=== PATIENT | male | born 1945 | race African-American/Black ===

== ENCOUNTER 2021-01-30 00:48 | Inpatient (IN) | payer BC, MEDICARE ==
[2021-01-30] VITALS (8 sets, daily range): BP systolic 153–191; BP diastolic 76–95
[~2021-01-30] VITALS: Ht 193 cm; Wt 129.0 kg
[2021-01-30] MEDS ORDERED: MORPHINE SULFATE 4 MG/ML CPJ (NOT FOR IM USE) IV STA (01:12)
[2021-01-30] MEDS ORDERED: ONDANSETRON HCL 4MG/2ML INJ IV STA (01:12)
[2021-01-30] MEDS ORDERED: SODIUM CHLORIDE 0.9% 1,000 ML IV ONE (01:15)
[2021-01-30] MEDS ORDERED: MORPHINE SULFATE 2 MG/ML CPJ (NOT FOR IM USE) IV SCH (01:30)
[2021-01-30 02:19] LABS: CHLORIDE 107 mEq/L (98-107)
[2021-01-30 02:23] LABS: ETHANOL BLOOD < 10 mg/dL
[2021-01-30 02:24] LABS: BASOPHILS % 0.5 % (0.0-2.0); EOSINOPHILS % 0.3 % (0.0-5.0); HEMATOCRIT. 37.2 % (42.0-52.0); HEMOGLOBIN. 12.2 g/dL (14.0-18.0); LYMPHOCYTES % 16.4 % (20.0-50.0); MEAN CORPUSCULAR HEMOGLOBIN 31.2 pg (28.0-32.0); MEAN CORPUSCULAR VOLUME 94.9 fL (80.0-94.0); MEAN PLATELET VOLUME 8.6 fl (7.4-10.4); MONOCYTES % 6.4 % (2.0-8.0); NEUTROPHILS % 76.4 % (40.0-76.0); PLATELET 148 x1000/uL (130-400); RED BLOOD CELL COUNT 3.92 mill/uL (4.7-6.1)
[2021-01-30 02:26] LABS: INR 1.1; LDL CHOLESTEROL 175 mg/dL (5-100); PROTHROMBIN TIME 12.2 sec (9.6-11.0)
[2021-01-30] MEDS ORDERED: ASPIRIN 300MG SUPP PR ONE (03:00)
[2021-01-30 03:11] LABS: CLARITY URINE CLEAR (CLEAR); COLOR URINE YELLOW (YELLOW); KETONES URINE TRACE (NEGATIVE); LEUKOCYTE ESTERASE URINE NEGATIVE (NEGATIVE); NITRITE URINE NEGATIVE (NEGATIVE); OCCULT BLOOD URINE 2+ (NEGATIVE); PH URINE 5.5 (4.5-8.0); PROTEIN URINE 2+ (NEGATIVE); SPECIFIC GRAVITY URINE 1.042 (1.005-1.030)
[2021-01-30 03:23] LABS: METHADONE URINE SCREEN NEGATIVE (NEGATIVE); OPIATES URINE SCREEN PRESUMTIVE POSITIVE (NEGATIVE)
[2021-01-30 03:24] LABS: *AMPHETAMINES SCREEN URINE NEGATIVE (NEGATIVE); *BARBITURATES SCREEN URINE NEGATIVE (NEGATIVE); *BENZODIAZEPINES SCREEN URINE NEGATIVE (NEGATIVE); *COCAINE SCREEN URINE NEGATIVE (NEGATIVE); CANNABINOID URINE SCREEN NEGATIVE (NEGATIVE); PHENCYCLIDINE URINE SCREEN NEGATIVE (NEGATIVE)
[2021-01-30] MEDS ORDERED: IOHEXOL-350 100 ML BOTTLE ONE (05:38)
[2021-01-30] MEDS ORDERED: LABETALOL 5MG/ML SYR 20 MG/4 ML SYRINGE IV PRN (10:30)
[2021-01-30] MEDS: HYDRALAZINE 20MG/ML VIAL IV PRN ×2 (13:50→20:17)
[2021-01-30] MEDS ORDERED: SODIUM CHLORIDE 0.9% 1,000 ML IV SCH (16:30)
[2021-01-30] MEDS ORDERED: ACETAMINOPHEN 325MG TABLET PO PRN ×2 (16:45)
[2021-01-30] MEDS ORDERED: IPRATROPIUM/ALBUTEROL 0.5-3(2.5)MG/3ML NEB HHN PRN (16:45)
[2021-01-30] MEDS ORDERED: ONDANSETRON HCL 4MG/2ML INJ IV PRN (16:45)
[2021-01-30] MEDS ORDERED: DOCUSATE SODIUM 100MG CAPSULE PO PRN (16:45)
[2021-01-30] MEDS: SODIUM CHLORIDE 0.45% 1,000 ML IV SCH (18:53)
[2021-01-30] MEDS ORDERED: ENOXAPARIN 120MG/0.8ML SYR SUBCUT SCH (20:00)
[2021-01-30 20:47] LABS: FOLIC ACID (FOLATE) SERUM 4.3 ng/mL (>5.38)
[2021-01-30] MEDS ORDERED: ATORVASTATIN CALCIUM 20MG TABLET PO SCH (21:00)
[2021-01-31] VITALS (18 sets, daily range): BP systolic 126–174; BP diastolic 62–94
[2021-01-31] MEDS: HYDRALAZINE 20MG/ML VIAL IV PRN (03:29)
[2021-01-31] MEDS: SODIUM CHLORIDE 0.45% 1,000 ML IV SCH ×2 (05:39→21:07)
[2021-01-31 07:17] LABS: EOSINOPHILS % 2.2 % (0.0-5.0); HEMATOCRIT. 35.2 % (42.0-52.0); LYMPHOCYTES % 20.4 % (20.0-50.0); MEAN CORPUSCULAR HEMOGLOBIN 31.7 pg (28.0-32.0); MEAN CORPUSCULAR VOLUME 92.8 fL (80.0-94.0); MEAN PLATELET VOLUME 8.6 fl (7.4-10.4); MONOCYTES % 6.9 % (2.0-8.0); NEUTROPHILS % 69.5 % (40.0-76.0); PLATELET 156 x1000/uL (130-400); RED BLOOD CELL COUNT 3.79 mill/uL (4.7-6.1); RED CELL DISTRIBUTION WIDTH 14.9 % (11.6-14.6)
[2021-01-31 07:28] LABS: CHLORIDE 107 mEq/L (98-107)
[2021-01-31] MEDS: ASPIRIN 81MG TABLET PO SCH (08:14)
[2021-01-31] MEDS ORDERED: NALOXONE HCL 0.4MG/ML VIAL IV PRN (15:45)
[2021-01-31] MEDS: FOLIC ACID 1MG TABLET PO SCH (15:57)
[2021-01-31] MEDS: THIAMINE HCL 100MG TABLET PO SCH (15:57)
[2021-01-31] MEDS: CLONIDINE 0.1MG TABLET PO PRN (16:41)
[2021-01-31] MEDS: ATORVASTATIN CALCIUM 20MG TABLET PO SCH (21:07)
[2021-01-31] MEDS: ENOXAPARIN 120MG/0.8ML SYR SUBCUT SCH (21:08)
[2021-02-01] VITALS (26 sets, daily range): BP systolic 130–193; BP diastolic 17–91
[2021-02-01] MEDS: HYDRALAZINE 20MG/ML VIAL IV PRN (04:09)
[2021-02-01] MEDS: CLONIDINE 0.1MG TABLET PO PRN ×2 (06:34→17:56)
[2021-02-01 06:50] LABS: BASOPHILS % 1.1 % (0.0-2.0); EOSINOPHILS % 2.7 % (0.0-5.0); HEMATOCRIT. 33.4 % (42.0-52.0); HEMOGLOBIN. 11.5 g/dL (14.0-18.0); LYMPHOCYTES % 26.9 % (20.0-50.0); MEAN CORPUSCULAR HEMOGLOBIN 31.7 pg (28.0-32.0); MEAN CORPUSCULAR VOLUME 92.2 fL (80.0-94.0); MONOCYTES % 7.3 % (2.0-8.0); PLATELET 165 x1000/uL (130-400); RED BLOOD CELL COUNT 3.63 mill/uL (4.7-6.1); RED CELL DISTRIBUTION WIDTH 14.7 % (11.6-14.6)
[2021-02-01 07:03] LABS: CHLORIDE 104 mEq/L (98-107)
[2021-02-01 07:26] LABS: PHOSPHORUS 2.6 mg/dL (2.5-4.9)
[2021-02-01] MEDS: ENOXAPARIN 120MG/0.8ML SYR SUBCUT SCH (08:30)
[2021-02-01] MEDS: FOLIC ACID 1MG TABLET PO SCH (08:30)
[2021-02-01] MEDS: ASPIRIN 81MG TABLET PO SCH (08:31)
[2021-02-01] MEDS: THIAMINE HCL 100MG TABLET PO SCH (08:33)
[2021-02-01] MEDS ORDERED: AMLODIPINE 5MG TABLET PO SCH (09:00)
[2021-02-01] MEDS: SODIUM CHLORIDE 0.45% 1,000 ML IV SCH (11:53)
[2021-02-01] MEDS: ALLOPURINOL 100 MG TABLET PO SCH (11:53)
[2021-02-01] MEDS ORDERED: LACTULOSE 20G/30ML UDC PO PRN (14:45)
[2021-02-01] MEDS ORDERED: BISACODYL 10MG SUPP PR PRN (14:45)
[2021-02-01] MEDS ORDERED: DOCUSATE SODIUM 100MG CAPSULE PO SCH (17:00)
[2021-02-01] MEDS: ATORVASTATIN CALCIUM 20MG TABLET PO SCH (21:08)
[2021-02-01] MEDS: ENOXAPARIN 150MG/ML SYR SUBCUT SCH (21:09)
[2021-02-01] MEDS: DOCUSATE SODIUM 100MG CAPSULE PO SCH (21:10)
[2021-02-01] MEDS: DOXAZOSIN MESYLATE 2MG TABLET PO SCH (21:11)
[2021-02-02] VITALS (12 sets, daily range): BP systolic 126–172; BP diastolic 57–96
[2021-02-02] MEDS: CLONIDINE 0.1MG TABLET PO PRN ×2 (06:20→16:47)
[2021-02-02 06:46] LABS: HEMATOCRIT. 31.6 % (42.0-52.0); HEMOGLOBIN. 10.8 g/dL (14.0-18.0); LYMPHOCYTES % 18.7 % (20.0-50.0); MEAN CORPUSCULAR HEMOGLOBIN 31.6 pg (28.0-32.0); MEAN CORPUSCULAR VOLUME 92.1 fL (80.0-94.0); MEAN PLATELET VOLUME 8.9 fl (7.4-10.4); MONOCYTES % 6.5 % (2.0-8.0); NEUTROPHILS % 70.8 % (40.0-76.0); PLATELET 181 x1000/uL (130-400); RED BLOOD CELL COUNT 3.42 mill/uL (4.7-6.1)
[2021-02-02 06:48] LABS: CHLORIDE 105 mEq/L (98-107)
[2021-02-02 06:55] LABS: PHOSPHORUS 2.4 mg/dL (2.5-4.9)
[2021-02-02] MEDS: ENOXAPARIN 150MG/ML SYR SUBCUT SCH ×2 (08:50→21:03)
[2021-02-02] MEDS: DILTIAZEM HCL 120MG CAPSULE CD 24HR PO SCH (08:52)
[2021-02-02] MEDS: FOLIC ACID 1MG TABLET PO SCH (08:52)
[2021-02-02] MEDS: ASPIRIN 81MG TABLET PO SCH (08:53)
[2021-02-02] MEDS: THIAMINE HCL 100MG TABLET PO SCH (08:53)
[2021-02-02] MEDS: DOCUSATE SODIUM 100MG CAPSULE PO SCH ×2 (08:53→16:47)
[2021-02-02] MEDS: ALLOPURINOL 100 MG TABLET PO SCH (08:53)
[2021-02-02] MEDS ORDERED: POTASSIUM CHLORIDE 20MEQ TABLET SR PO NR (09:18)
[2021-02-02] MEDS ORDERED: MAGNESIUM CITRATE 300ML SOLUTION PO NR (10:00)
[2021-02-02] MEDS: POTASSIUM-SODIUM PHOSPHATE POWDER PACKET PO SCH (16:46)
[2021-02-02] MEDS: HYDRALAZINE 20MG/ML VIAL IV PRN (18:10)
[2021-02-02] MEDS: ATORVASTATIN CALCIUM 20MG TABLET PO SCH (21:03)
[2021-02-02] MEDS: DOXAZOSIN MESYLATE 2MG TABLET PO SCH (21:04)
[2021-02-03] VITALS (11 sets, daily range): BP systolic 99–166; BP diastolic 58–85
[2021-02-03] MEDS: HYDROCODONE/ACETAMINOPHEN 5/325MG TABLET PO PRN ×2 (03:31→18:02)
[2021-02-03 06:09] LABS: BASOPHILS % 0.8 % (0.0-2.0); EOSINOPHILS % 2.7 % (0.0-5.0); HEMATOCRIT. 33.2 % (42.0-52.0); HEMOGLOBIN. 10.9 g/dL (14.0-18.0); LYMPHOCYTES % 23.1 % (20.0-50.0); MEAN CORPUSCULAR HEMOGLOBIN 31.5 pg (28.0-32.0); MEAN CORPUSCULAR VOLUME 95.7 fL (80.0-94.0); MEAN PLATELET VOLUME 8.4 fl (7.4-10.4); MONOCYTES % 8.1 % (2.0-8.0); NEUTROPHILS % 65.3 % (40.0-76.0); PLATELET 195 x1000/uL (130-400); RED BLOOD CELL COUNT 3.47 mill/uL (4.7-6.1)
[2021-02-03 06:26] LABS: PHOSPHORUS 2.4 mg/dL (2.5-4.9)
[2021-02-03] MEDS: DOCUSATE SODIUM 100MG CAPSULE PO SCH ×2 (07:36→17:00)
[2021-02-03] MEDS: POTASSIUM-SODIUM PHOSPHATE POWDER PACKET PO SCH ×2 (08:34→18:01)
[2021-02-03] MEDS: ALLOPURINOL 100 MG TABLET PO SCH (08:34)
[2021-02-03] MEDS: DILTIAZEM HCL 120MG CAPSULE CD 24HR PO SCH (08:34)
[2021-02-03] MEDS: FOLIC ACID 1MG TABLET PO SCH (08:35)
[2021-02-03] MEDS: ENOXAPARIN 150MG/ML SYR SUBCUT SCH (08:35)
[2021-02-03] MEDS: ASPIRIN 81MG TABLET PO SCH (08:35)
[2021-02-03] MEDS: THIAMINE HCL 100MG TABLET PO SCH (08:35)
[2021-02-03 14:10] LABS: TOTAL IRON BINDING CAPACITY 245 ug/dL (250-450)
[2021-02-03 14:14] LABS: CREATINE KINASE 449 IU/L (39-308)
[2021-02-03] MEDS: ATORVASTATIN CALCIUM 20MG TABLET PO SCH (21:54)
[2021-02-03] MEDS: DOXAZOSIN MESYLATE 2MG TABLET PO SCH (21:55)
[2021-02-03] MEDS: ENOXAPARIN 120MG/0.8ML SYR SUBCUT SCH (21:55)
[2021-02-04] VITALS (12 sets, daily range): BP systolic 111–163; BP diastolic 63–90
[2021-02-04] MEDS: HYDROCODONE/ACETAMINOPHEN 5/325MG TABLET PO PRN (04:49)
[2021-02-04 06:48] LABS: BASOPHILS % 1.1 % (0.0-2.0); EOSINOPHILS % 3.7 % (0.0-5.0); HEMATOCRIT. 29.1 % (42.0-52.0); HEMOGLOBIN. 10.1 g/dL (14.0-18.0); LYMPHOCYTES % 25.4 % (20.0-50.0); MEAN CORPUSCULAR HEMOGLOBIN 31.7 pg (28.0-32.0); MEAN CORPUSCULAR VOLUME 91.5 fL (80.0-94.0); MEAN PLATELET VOLUME 8.3 fl (7.4-10.4); MONOCYTES % 9.1 % (2.0-8.0); NEUTROPHILS % 60.7 % (40.0-76.0); PLATELET 214 x1000/uL (130-400); RED BLOOD CELL COUNT 3.18 mill/uL (4.7-6.1); RED CELL DISTRIBUTION WIDTH 14.8 % (11.6-14.6)
[2021-02-04 07:12] LABS: PHOSPHORUS 3.2 mg/dL (2.5-4.9)
[2021-02-04] MEDS: FOLIC ACID 1MG TABLET PO SCH (08:33)
[2021-02-04] MEDS: THIAMINE HCL 100MG TABLET PO SCH (08:33)
[2021-02-04] MEDS: ALLOPURINOL 100 MG TABLET PO SCH (08:34)
[2021-02-04] MEDS: ASPIRIN 81MG TABLET PO SCH (08:34)
[2021-02-04] MEDS: DILTIAZEM HCL 120MG CAPSULE CD 24HR PO SCH (08:34)
[2021-02-04] MEDS: POTASSIUM-SODIUM PHOSPHATE POWDER PACKET PO SCH ×2 (08:34→17:54)
[2021-02-04] MEDS: ENOXAPARIN 120MG/0.8ML SYR SUBCUT SCH ×2 (08:34→20:54)
[2021-02-04] MEDS: DOCUSATE SODIUM 100MG CAPSULE PO SCH ×2 (08:35→17:00)
[2021-02-04] MEDS: ATORVASTATIN CALCIUM 20MG TABLET PO SCH (20:54)
[2021-02-04] MEDS: DOXAZOSIN MESYLATE 2MG TABLET PO SCH (20:55)
[2021-02-05] VITALS (15 sets, daily range): BP systolic 98–174; BP diastolic 50–95
[2021-02-05] MEDS: FOLIC ACID 1MG TABLET PO SCH (08:11)
[2021-02-05] MEDS: DOCUSATE SODIUM 100MG CAPSULE PO SCH ×2 (08:11→16:59)
[2021-02-05] MEDS: CLONIDINE 0.1MG TABLET PO PRN (08:12)
[2021-02-05] MEDS: ENOXAPARIN 120MG/0.8ML SYR SUBCUT SCH ×2 (08:13→21:25)
[2021-02-05] MEDS: ASPIRIN 81MG TABLET PO SCH (08:14)
[2021-02-05] MEDS: THIAMINE HCL 100MG TABLET PO SCH (08:14)
[2021-02-05] MEDS: DILTIAZEM HCL 120MG CAPSULE CD 24HR PO SCH (08:14)
[2021-02-05] MEDS: ALLOPURINOL 100 MG TABLET PO SCH (08:14)
[2021-02-05] MEDS: POTASSIUM-SODIUM PHOSPHATE POWDER PACKET PO SCH ×2 (08:14→16:59)
[2021-02-05] MEDS: ATORVASTATIN CALCIUM 20MG TABLET PO SCH (21:25)
[2021-02-05] MEDS: DOXAZOSIN MESYLATE 2MG TABLET PO SCH (21:26)
[2021-02-05] MEDS: HYDRALAZINE HCL 25MG TABLET PO SCH (21:27)
[2021-02-06] VITALS (12 sets, daily range): BP systolic 132–181; BP diastolic 45–88
[2021-02-06 07:12] LABS: HEMATOCRIT. 29.1 % (42.0-52.0); MEAN CORPUSCULAR HEMOGLOBIN 32.1 pg (28.0-32.0); MEAN CORPUSCULAR VOLUME 93.7 fL (80.0-94.0); MEAN PLATELET VOLUME 8.6 fl (7.4-10.4); PLATELET 249 x1000/uL (130-400); RED BLOOD CELL COUNT 3.11 mill/uL (4.7-6.1)
[2021-02-06 07:48] LABS: PHOSPHORUS 3.1 mg/dL (2.5-4.9)
[2021-02-06] MEDS: POTASSIUM-SODIUM PHOSPHATE POWDER PACKET PO SCH (08:26)
[2021-02-06] MEDS: ENOXAPARIN 120MG/0.8ML SYR SUBCUT SCH ×2 (08:26→20:54)
[2021-02-06] MEDS: ALLOPURINOL 100 MG TABLET PO SCH (08:27)
[2021-02-06] MEDS: ASPIRIN 81MG TABLET PO SCH (08:27)
[2021-02-06] MEDS: DILTIAZEM HCL 120MG CAPSULE CD 24HR PO SCH (08:27)
[2021-02-06] MEDS: FOLIC ACID 1MG TABLET PO SCH (08:27)
[2021-02-06] MEDS: DOCUSATE SODIUM 100MG CAPSULE PO SCH ×2 (08:27→16:29)
[2021-02-06] MEDS: HYDRALAZINE HCL 25MG TABLET PO SCH ×2 (08:27→20:53)
[2021-02-06] MEDS: THIAMINE HCL 100MG TABLET PO SCH (08:31)
[2021-02-06 18:40] LABS: PLATELET ESTIMATE NORMAL
[2021-02-06] MEDS: ATORVASTATIN CALCIUM 20MG TABLET PO SCH (20:53)
[2021-02-06] MEDS: DOXAZOSIN MESYLATE 2MG TABLET PO SCH (20:53)
[2021-02-07] VITALS (13 sets, daily range): BP systolic 122–156; BP diastolic 47–91
[2021-02-07 05:46] LABS: INR 1.1; PROTHROMBIN TIME 11.6 sec (9.6-11.0)
[2021-02-07 05:57] LABS: EOSINOPHILS % 2.7 % (0.0-5.0); HEMATOCRIT. 28.5 % (42.0-52.0); HEMOGLOBIN. 9.8 g/dL (14.0-18.0); LYMPHOCYTES % 28.6 % (20.0-50.0); MEAN CORPUSCULAR VOLUME 93.4 fL (80.0-94.0); MEAN PLATELET VOLUME 8.4 fl (7.4-10.4); NEUTROPHILS % 59.7 % (40.0-76.0); PLATELET 252 x1000/uL (130-400); RED BLOOD CELL COUNT 3.05 mill/uL (4.7-6.1); RED CELL DISTRIBUTION WIDTH 14.9 % (11.6-14.6)
[2021-02-07] MEDS: DOCUSATE SODIUM 100MG CAPSULE PO SCH ×2 (08:40→17:00)
[2021-02-07] MEDS: ALLOPURINOL 100 MG TABLET PO SCH (08:40)
[2021-02-07] MEDS: THIAMINE HCL 100MG TABLET PO SCH (08:40)
[2021-02-07] MEDS: HYDRALAZINE HCL 25MG TABLET PO SCH ×2 (08:40→21:22)
[2021-02-07] MEDS: FOLIC ACID 1MG TABLET PO SCH (08:40)
[2021-02-07] MEDS: POTASSIUM-SODIUM PHOSPHATE POWDER PACKET PO SCH (08:40)
[2021-02-07] MEDS: DILTIAZEM HCL 120MG CAPSULE CD 24HR PO SCH (08:41)
[2021-02-07] MEDS: ASPIRIN 81MG TABLET PO SCH (08:41)
[2021-02-07] MEDS ORDERED: ENOXAPARIN 120MG/0.8ML SYR SUBCUT SCH (09:00)
[2021-02-07] MEDS: ATORVASTATIN CALCIUM 20MG TABLET PO SCH (21:22)
[2021-02-07] MEDS: DOXAZOSIN MESYLATE 2MG TABLET PO SCH (21:22)
[2021-02-08] VITALS (12 sets, daily range): BP systolic 115–160; BP diastolic 52–126
[2021-02-08 06:43] LABS: BASOPHILS % 0.9 % (0.0-2.0); EOSINOPHILS % 2.4 % (0.0-5.0); HEMATOCRIT. 28.6 % (42.0-52.0); HEMOGLOBIN. 9.7 g/dL (14.0-18.0); LYMPHOCYTES % 24.6 % (20.0-50.0); MEAN CORPUSCULAR HEMOGLOBIN 31.7 pg (28.0-32.0); MEAN CORPUSCULAR VOLUME 93.2 fL (80.0-94.0); MONOCYTES % 8.3 % (2.0-8.0); NEUTROPHILS % 63.8 % (40.0-76.0); PLATELET 273 x1000/uL (130-400); RED BLOOD CELL COUNT 3.07 mill/uL (4.7-6.1); RED CELL DISTRIBUTION WIDTH 15.1 % (11.6-14.6)
[2021-02-08] MEDS: FOLIC ACID 1MG TABLET PO SCH (08:54)
[2021-02-08] MEDS: DOCUSATE SODIUM 100MG CAPSULE PO SCH ×2 (08:54→17:00)
[2021-02-08] MEDS: ALLOPURINOL 100 MG TABLET PO SCH (08:54)
[2021-02-08] MEDS: ASPIRIN 81MG TABLET PO SCH (08:54)
[2021-02-08] MEDS: THIAMINE HCL 100MG TABLET PO SCH (08:54)
[2021-02-08] MEDS: ENOXAPARIN 150MG/ML SYR SUBCUT SCH (08:55)
[2021-02-08] MEDS: HYDRALAZINE HCL 50MG TABLET PO SCH ×2 (08:55→21:41)
[2021-02-08] MEDS: POTASSIUM-SODIUM PHOSPHATE POWDER PACKET PO SCH (08:55)
[2021-02-08] MEDS: DILTIAZEM HCL 120MG CAPSULE CD 24HR PO SCH (08:58)
[2021-02-08 09:28] LABS: PHOSPHORUS 2.8 mg/dL (2.5-4.9)
[2021-02-08] MEDS: DOXAZOSIN MESYLATE 2MG TABLET PO SCH (21:41)
[2021-02-08] MEDS: ATORVASTATIN CALCIUM 20MG TABLET PO SCH (21:41)
[2021-02-09] VITALS (12 sets, daily range): BP systolic 128–150; BP diastolic 37–95
[2021-02-09] MEDS: POTASSIUM-SODIUM PHOSPHATE POWDER PACKET PO SCH (09:04)
[2021-02-09] MEDS: ASPIRIN 81MG TABLET PO SCH (09:04)
[2021-02-09] MEDS: THIAMINE HCL 100MG TABLET PO SCH (09:04)
[2021-02-09] MEDS: FOLIC ACID 1MG TABLET PO SCH (09:04)
[2021-02-09] MEDS: ALLOPURINOL 100 MG TABLET PO SCH (09:04)
[2021-02-09] MEDS: DOCUSATE SODIUM 100MG CAPSULE PO SCH ×2 (09:04→17:00)
[2021-02-09] MEDS: ENOXAPARIN 150MG/ML SYR SUBCUT SCH (09:05)
[2021-02-09] MEDS: HYDRALAZINE HCL 50MG TABLET PO SCH ×2 (09:05→22:01)
[2021-02-09] MEDS: DILTIAZEM HCL 120MG CAPSULE CD 24HR PO SCH (09:07)
[2021-02-09] MEDS: LACTULOSE 20G/30ML UDC PO SCH ×2 (17:43→21:00)
[2021-02-09] MEDS: DOXAZOSIN MESYLATE 2MG TABLET PO SCH (22:01)
[2021-02-09] MEDS: ATORVASTATIN CALCIUM 20MG TABLET PO SCH (22:02)
[2021-02-10] VITALS (9 sets, daily range): BP systolic 107–153; BP diastolic 66–85
[2021-02-10] MEDS ORDERED: BISACODYL 10MG SUPP PR NR (08:00)
[2021-02-10] MEDS ORDERED: ENOXAPARIN 30MG/0.3ML SYR SUBCUT SCH (09:00)
[2021-02-10] MEDS: DILTIAZEM HCL 120MG CAPSULE CD 24HR PO SCH (09:00)
[2021-02-10] MEDS ORDERED: CLOPIDOGREL 75MG TABLET PO SCH (09:00)
[2021-02-10] MEDS: HYDRALAZINE HCL 50MG TABLET PO SCH (09:00)
[2021-02-10 09:22] LABS: BASOPHILS % 1.1 % (0.0-2.0); EOSINOPHILS % 2.3 % (0.0-5.0); HEMATOCRIT. 31.1 % (42.0-52.0); HEMOGLOBIN. 10.2 g/dL (14.0-18.0); LYMPHOCYTES % 23.5 % (20.0-50.0); MEAN CORPUSCULAR VOLUME 97.6 fL (80.0-94.0); MEAN PLATELET VOLUME 8.7 fl (7.4-10.4); MONOCYTES % 6.4 % (2.0-8.0); NEUTROPHILS % 66.7 % (40.0-76.0); PLATELET 117 x1000/uL (130-400); RED BLOOD CELL COUNT 3.19 mill/uL (4.7-6.1); RED CELL DISTRIBUTION WIDTH 15.6 % (11.6-14.6)
[2021-02-10] MEDS: POTASSIUM-SODIUM PHOSPHATE POWDER PACKET PO SCH (09:40)
[2021-02-10] MEDS: THIAMINE HCL 100MG TABLET PO SCH (09:41)
[2021-02-10] MEDS: ASPIRIN 81MG TABLET PO SCH (09:41)
[2021-02-10] MEDS: FOLIC ACID 1MG TABLET PO SCH (09:41)
[2021-02-10] MEDS: DOCUSATE SODIUM 100MG CAPSULE PO SCH (09:41)
[2021-02-10] MEDS: ALLOPURINOL 100 MG TABLET PO SCH (09:42)
[2021-02-10] MEDS: LACTULOSE 20G/30ML UDC PO SCH (09:46)
== END 2021-02-10 15:27 | DRG 64 ==
LOC: ER 00:48 → 3WST 02:47 → EDBEDREQ 02:51 → EDBEDREQTM 02:51 → EDBEDREQSVC 02:51 → EDBEDREQ 05:12 → EDBEDREQTM 05:12 → EDBEDREQSVC 05:12 → ENRESERV 07:32
PROVIDERS: ADMIT Internal Medicine; ATTEND Internal Medicine
DX: I63.9 Cerebral infarction, unspecified (principal); G82.50 Quadriplegia, unspecified; G92.8 Other toxic encephalopathy; M62.82 Rhabdomyolysis; N17.9 Acute kidney failure, unspecified; J98.11 Atelectasis; I31.3 Pericardial effusion (noninflammatory); N18.4 Chronic kidney disease, stage 4 (severe); E78.5 Hyperlipidemia, unspecified; I16.0 Hypertensive urgency; I65.22 Occlusion and stenosis of left carotid artery; R47.01 Aphasia; R13.10 Dysphagia, unspecified; E03.9 Hypothyroidism, unspecified; E53.8 Deficiency of other specified B group vitamins; E87.6 Hypokalemia; I13.10 Hypertensive heart and chronic kidney disease without heart failure, with stage 1 through stage 4 chronic kidney disease, or unspecified chronic kidney disease; I25.10 Atherosclerotic heart disease of native coronary artery without angina pectoris; I65.23 Occlusion and stenosis of bilateral carotid arteries; M16.0 Bilateral primary osteoarthritis of hip; D53.9 Nutritional anemia, unspecified; E11.65 Type 2 diabetes mellitus with hyperglycemia; E78.00 Pure hypercholesterolemia, unspecified; N18.30 Chronic kidney disease, stage 3 unspecified; N20.0 Calculus of kidney; E11.22 Type 2 diabetes mellitus with diabetic chronic kidney disease; R80.9 Proteinuria, unspecified; M10.9 Gout, unspecified; G89.29 Other chronic pain; E88.81 Metabolic syndrome and other insulin resistance; R94.5 Abnormal results of liver function studies; Z20.822 Contact with and (suspected) exposure to COVID-19; K59.00 Constipation, unspecified; R47.1 Dysarthria and anarthria; Z98.61 Coronary angioplasty status; Z79.82 Long term (current) use of aspirin; Z79.899 Other long term (current) drug therapy; Z80.0 Family history of malignant neoplasm of digestive organs; Z82.49 Family history of ischemic heart disease and other diseases of the circulatory system; Z83.3 Family history of diabetes mellitus; Z68.33 Body mass index [BMI] 33.0-33.9, adult
CPT/HCPCS: 36415; 70496; 70498; 70551; 71045; 74176; 76770; 80048; 80053; 80061; 80305; 80320; 81003; 82140; 82550; 82607; 82728; 82746; 82962; 83036; 83540; 83550; 83721; 83735; 84100; 84145; 84443; 84484; 84550; 85025; 86850; 86900; 87426; 92523; 92610; 93005; 93306; 95816; 97110; 97112; 97116; 97162; 97166; 97530; 99291; C1893; J0360; J1650; J2270; J2405; J3490; J7030; Q9967; G0480

== ENCOUNTER 2021-02-10 16:25 | Inpatient (IN) | payer BC ==
[~2021-02-10] VITALS: Ht 193 cm; Wt 125.6 kg
[2021-02-10 17:11] VITALS: BP 139/91
[2021-02-10] MEDS ORDERED: ACETAMINOPHEN 325MG TABLET PO PRN (17:15)
[2021-02-10] MEDS ORDERED: ONDANSETRON HCL 4MG/2ML INJ IV PRN (17:15)
[2021-02-10] MEDS ORDERED: LACTULOSE 20G/30ML UDC PO PRN (17:15)
[2021-02-10] MEDS ORDERED: IPRATROPIUM/ALBUTEROL 0.5-3(2.5)MG/3ML NEB HHN SCH (17:15)
[2021-02-10] MEDS ORDERED: BISACODYL 10MG SUPP PR PRN (17:15)
[2021-02-10 17:39] VITALS: BP 139/91
[2021-02-10 20:00] VITALS: BP_SYST 138; BP_DIAS 74; BP_DIAS 77
[2021-02-10] MEDS: DOXAZOSIN MESYLATE 4MG TABLET PO SCH (22:05)
[2021-02-10] MEDS: ATORVASTATIN CALCIUM 40MG TABLET PO SCH (22:08)
[2021-02-10] MEDS: HYDRALAZINE HCL 50MG TABLET PO SCH (22:10)
[2021-02-10] MEDS: ENOXAPARIN 30MG/0.3ML SYR SUBCUT SCH (22:13)
[2021-02-11 07:08] LABS: BASOPHILS % 0.9 % (0.0-2.0); HEMATOCRIT. 26.8 % (42.0-52.0); HEMOGLOBIN. 9.1 g/dL (14.0-18.0); LYMPHOCYTES % 23.6 % (20.0-50.0); MEAN CORPUSCULAR VOLUME 94.1 fL (80.0-94.0); MEAN PLATELET VOLUME 8.1 fl (7.4-10.4); MONOCYTES % 7.5 % (2.0-8.0); PLATELET 252 x1000/uL (130-400); RED BLOOD CELL COUNT 2.84 mill/uL (4.7-6.1); RED CELL DISTRIBUTION WIDTH 15.4 % (11.6-14.6)
[2021-02-11 07:19] LABS: CHLORIDE 107 mEq/L (98-107)
[2021-02-11 08:00] VITALS: BP 103/52
[2021-02-11] MEDS: HYDRALAZINE HCL 50MG TABLET PO SCH ×2 (09:00→21:09)
[2021-02-11] MEDS: DILTIAZEM HCL 120MG CAPSULE CD 24HR PO SCH (09:00)
[2021-02-11] MEDS: DOCUSATE SODIUM 100MG CAPSULE PO SCH ×2 (09:43→17:12)
[2021-02-11] MEDS: CLOPIDOGREL 75MG TABLET PO SCH (09:43)
[2021-02-11] MEDS: THIAMINE HCL 100MG TABLET PO SCH (09:43)
[2021-02-11] MEDS: ALLOPURINOL 100 MG TABLET PO SCH (09:43)
[2021-02-11] MEDS: FOLIC ACID 1MG TABLET PO SCH (09:44)
[2021-02-11] MEDS: ENOXAPARIN 30MG/0.3ML SYR SUBCUT SCH ×2 (09:44→21:09)
[2021-02-11] MEDS: ASPIRIN 81MG TABLET PO SCH (09:45)
[2021-02-11 12:00] VITALS: BP 130/70
[2021-02-11 16:00] VITALS: BP 133/70
[2021-02-11 20:00] VITALS: BP 147/73
[2021-02-11] MEDS: ATORVASTATIN CALCIUM 40MG TABLET PO SCH (21:09)
[2021-02-11] MEDS: DOXAZOSIN MESYLATE 4MG TABLET PO SCH (21:09)
[2021-02-12 08:00] VITALS: BP 135/66
[2021-02-12] MEDS: DILTIAZEM HCL 120MG CAPSULE CD 24HR PO SCH (08:44)
[2021-02-12] MEDS: THIAMINE HCL 100MG TABLET PO SCH (08:44)
[2021-02-12] MEDS: DOCUSATE SODIUM 100MG CAPSULE PO SCH ×2 (08:44→16:56)
[2021-02-12] MEDS: FOLIC ACID 1MG TABLET PO SCH (08:44)
[2021-02-12] MEDS: ASPIRIN 81MG TABLET PO SCH (08:45)
[2021-02-12] MEDS: CLOPIDOGREL 75MG TABLET PO SCH (08:45)
[2021-02-12] MEDS: HYDRALAZINE HCL 50MG TABLET PO SCH ×2 (08:45→21:17)
[2021-02-12] MEDS: ENOXAPARIN 30MG/0.3ML SYR SUBCUT SCH ×2 (08:45→21:18)
[2021-02-12] MEDS: ALLOPURINOL 100 MG TABLET PO SCH (08:45)
[2021-02-12 08:49] LABS: BASOPHILS % 0.7 % (0.0-2.0); EOSINOPHILS % 2.7 % (0.0-5.0); HEMATOCRIT. 25.5 % (42.0-52.0); HEMOGLOBIN. 8.8 g/dL (14.0-18.0); LYMPHOCYTES % 25.9 % (20.0-50.0); MEAN CORPUSCULAR HEMOGLOBIN 32.5 pg (28.0-32.0); MEAN CORPUSCULAR VOLUME 93.7 fL (80.0-94.0); MEAN PLATELET VOLUME 8.3 fl (7.4-10.4); MONOCYTES % 6.3 % (2.0-8.0); NEUTROPHILS % 64.4 % (40.0-76.0); PLATELET 268 x1000/uL (130-400); RED BLOOD CELL COUNT 2.73 mill/uL (4.7-6.1); RED CELL DISTRIBUTION WIDTH 15.2 % (11.6-14.6)
[2021-02-12 09:31] LABS: CHLORIDE 107 mEq/L (98-107)
[2021-02-12 09:37] LABS: PHOSPHORUS 2.9 mg/dL (2.5-4.9)
[2021-02-12 09:52] LABS: TOTAL IRON BINDING CAPACITY 231 ug/dL (250-450)
[2021-02-12 09:53] LABS: FOLIC ACID (FOLATE) SERUM 10.2 ng/mL (>5.38)
[2021-02-12 10:15] LABS: PROSTRATE SPECIFIC AG TOTAL 0.48 ng/mL (0.0-4.0)
[2021-02-12 20:00] VITALS: BP 137/71
[2021-02-12] MEDS: ATORVASTATIN CALCIUM 40MG TABLET PO SCH (21:16)
[2021-02-12] MEDS: DOXAZOSIN MESYLATE 4MG TABLET PO SCH (21:16)
[2021-02-13 07:23] LABS: BASOPHILS % 0.8 % (0.0-2.0); EOSINOPHILS % 2.7 % (0.0-5.0); HEMATOCRIT. 25.8 % (42.0-52.0); HEMOGLOBIN. 8.8 g/dL (14.0-18.0); LYMPHOCYTES % 24.7 % (20.0-50.0); MEAN CORPUSCULAR HEMOGLOBIN 32.1 pg (28.0-32.0); MEAN CORPUSCULAR VOLUME 94.2 fL (80.0-94.0); MEAN PLATELET VOLUME 7.9 fl (7.4-10.4); MONOCYTES % 6.6 % (2.0-8.0); NEUTROPHILS % 65.2 % (40.0-76.0); PLATELET 276 x1000/uL (130-400); RED BLOOD CELL COUNT 2.74 mill/uL (4.7-6.1); RED CELL DISTRIBUTION WIDTH 15.6 % (11.6-14.6)
[2021-02-13 07:49] VITALS: BP 149/73
[2021-02-13] MEDS: DILTIAZEM HCL 120MG CAPSULE CD 24HR PO SCH (09:15)
[2021-02-13] MEDS: ASPIRIN 81MG TABLET PO SCH (09:16)
[2021-02-13] MEDS: ALLOPURINOL 100 MG TABLET PO SCH (09:16)
[2021-02-13] MEDS: THIAMINE HCL 100MG TABLET PO SCH (09:16)
[2021-02-13] MEDS: HYDRALAZINE HCL 50MG TABLET PO SCH ×2 (09:16→20:52)
[2021-02-13] MEDS: DOCUSATE SODIUM 100MG CAPSULE PO SCH ×2 (09:16→17:09)
[2021-02-13] MEDS: ENOXAPARIN 30MG/0.3ML SYR SUBCUT SCH ×2 (09:16→20:53)
[2021-02-13] MEDS: FOLIC ACID 1MG TABLET PO SCH (09:16)
[2021-02-13] MEDS: POLYETHYLENE GLYCOL 3350 (17GM) 1 DOSE PACK PO SCH (09:17)
[2021-02-13] MEDS: CLOPIDOGREL 75MG TABLET PO SCH (09:24)
[2021-02-13 13:12] LABS: PHOSPHORUS 3.3 mg/dL (2.5-4.9)
[2021-02-13 13:16] LABS: T4 FREE 0.94 ng/dL (0.76-1.46)
[2021-02-13] MEDS: CYANOCOBALAMIN 1000MCG/ML VIAL IM SCH (17:09)
[2021-02-13 20:00] VITALS: BP 138/72
[2021-02-13] MEDS: ATORVASTATIN CALCIUM 40MG TABLET PO SCH (20:51)
[2021-02-13] MEDS: DOXAZOSIN MESYLATE 4MG TABLET PO SCH (20:51)
[2021-02-14 08:30] VITALS: BP 108/60
[2021-02-14] MEDS: POLYETHYLENE GLYCOL 3350 (17GM) 1 DOSE PACK PO SCH (09:00)
[2021-02-14] MEDS ORDERED: MAGNESIUM CITRATE 300ML SOLUTION PO NR (09:00)
[2021-02-14] MEDS: ENOXAPARIN 30MG/0.3ML SYR SUBCUT SCH ×2 (10:08→21:27)
[2021-02-14] MEDS: ASPIRIN 81MG TABLET PO SCH (10:08)
[2021-02-14] MEDS: CYANOCOBALAMIN 1000MCG/ML VIAL IM SCH (10:08)
[2021-02-14] MEDS: THIAMINE HCL 100MG TABLET PO SCH (10:09)
[2021-02-14] MEDS: CLOPIDOGREL 75MG TABLET PO SCH (10:09)
[2021-02-14] MEDS: DILTIAZEM HCL 120MG CAPSULE CD 24HR PO SCH (10:09)
[2021-02-14] MEDS: DOCUSATE SODIUM 100MG CAPSULE PO SCH ×2 (10:10→17:00)
[2021-02-14] MEDS: ALLOPURINOL 100 MG TABLET PO SCH (10:10)
[2021-02-14] MEDS: HYDRALAZINE HCL 50MG TABLET PO SCH ×2 (10:10→21:00)
[2021-02-14] MEDS: FOLIC ACID 1MG TABLET PO SCH (10:10)
[2021-02-14 20:00] VITALS: BP 111/64
[2021-02-14] MEDS: ATORVASTATIN CALCIUM 40MG TABLET PO SCH (21:25)
[2021-02-14] MEDS: DOXAZOSIN MESYLATE 4MG TABLET PO SCH (21:26)
[2021-02-15 06:50] LABS: EOSINOPHILS % 1.8 % (0.0-5.0); HEMATOCRIT. 27.4 % (42.0-52.0); HEMOGLOBIN. 9.3 g/dL (14.0-18.0); LYMPHOCYTES % 21.8 % (20.0-50.0); MEAN CORPUSCULAR HEMOGLOBIN 32.2 pg (28.0-32.0); MEAN CORPUSCULAR VOLUME 94.9 fL (80.0-94.0); MEAN PLATELET VOLUME 7.9 fl (7.4-10.4); MONOCYTES % 7.5 % (2.0-8.0); NEUTROPHILS % 67.9 % (40.0-76.0); PLATELET 286 x1000/uL (130-400); RED BLOOD CELL COUNT 2.89 mill/uL (4.7-6.1); RED CELL DISTRIBUTION WIDTH 15.9 % (11.6-14.6)
[2021-02-15 08:00] VITALS: BP 132/63
[2021-02-15] MEDS: POLYETHYLENE GLYCOL 3350 (17GM) 1 DOSE PACK PO SCH (09:00)
[2021-02-15] MEDS: ENOXAPARIN 30MG/0.3ML SYR SUBCUT SCH ×2 (09:36→20:57)
[2021-02-15] MEDS: DOCUSATE SODIUM 100MG CAPSULE PO SCH ×2 (09:37→17:09)
[2021-02-15] MEDS: DILTIAZEM HCL 120MG CAPSULE CD 24HR PO SCH (09:37)
[2021-02-15] MEDS: CLOPIDOGREL 75MG TABLET PO SCH (09:37)
[2021-02-15] MEDS: FOLIC ACID 1MG TABLET PO SCH (09:37)
[2021-02-15] MEDS: CYANOCOBALAMIN 1000MCG/ML VIAL IM SCH (09:38)
[2021-02-15] MEDS: ALLOPURINOL 100 MG TABLET PO SCH (09:38)
[2021-02-15] MEDS: ASPIRIN 81MG TABLET PO SCH (09:38)
[2021-02-15] MEDS: THIAMINE HCL 100MG TABLET PO SCH (09:38)
[2021-02-15 20:00] VITALS: BP 132/64
[2021-02-15] MEDS: ATORVASTATIN CALCIUM 40MG TABLET PO SCH (20:56)
[2021-02-15] MEDS: DOXAZOSIN MESYLATE 4MG TABLET PO SCH (20:57)
[2021-02-16 08:00] VITALS: BP 154/69
[2021-02-16] MEDS: CLOPIDOGREL 75MG TABLET PO SCH (08:24)
[2021-02-16] MEDS: ALLOPURINOL 100 MG TABLET PO SCH (08:24)
[2021-02-16] MEDS: ASPIRIN 81MG TABLET PO SCH (08:24)
[2021-02-16] MEDS: DOCUSATE SODIUM 100MG CAPSULE PO SCH ×2 (08:24→17:01)
[2021-02-16] MEDS: THIAMINE HCL 100MG TABLET PO SCH (08:24)
[2021-02-16] MEDS: DILTIAZEM HCL 120MG CAPSULE CD 24HR PO SCH (08:25)
[2021-02-16] MEDS: FOLIC ACID 1MG TABLET PO SCH (08:25)
[2021-02-16] MEDS: ENOXAPARIN 30MG/0.3ML SYR SUBCUT SCH ×2 (08:25→20:12)
[2021-02-16] MEDS: POLYETHYLENE GLYCOL 3350 (17GM) 1 DOSE PACK PO SCH (08:25)
[2021-02-16] MEDS: CYANOCOBALAMIN 1000MCG/ML VIAL IM SCH (08:26)
[2021-02-16 20:00] VITALS: BP 138/66
[2021-02-16] MEDS: DOXAZOSIN MESYLATE 4MG TABLET PO SCH (20:12)
[2021-02-16] MEDS: ATORVASTATIN CALCIUM 40MG TABLET PO SCH (20:12)
[2021-02-17 08:00] VITALS: BP 119/53
[2021-02-17] MEDS: CYANOCOBALAMIN 1000MCG/ML VIAL IM SCH (08:21)
[2021-02-17] MEDS: DOCUSATE SODIUM 100MG CAPSULE PO SCH ×2 (08:22→17:22)
[2021-02-17] MEDS: FOLIC ACID 1MG TABLET PO SCH (08:22)
[2021-02-17] MEDS: THIAMINE HCL 100MG TABLET PO SCH (08:22)
[2021-02-17] MEDS: CLOPIDOGREL 75MG TABLET PO SCH (08:22)
[2021-02-17] MEDS: ALLOPURINOL 100 MG TABLET PO SCH (08:22)
[2021-02-17] MEDS: POLYETHYLENE GLYCOL 3350 (17GM) 1 DOSE PACK PO SCH (08:22)
[2021-02-17] MEDS: ASPIRIN 81MG TABLET PO SCH (08:22)
[2021-02-17] MEDS: ENOXAPARIN 30MG/0.3ML SYR SUBCUT SCH ×2 (08:25→20:01)
[2021-02-17] MEDS: DILTIAZEM HCL 300MG CAPSULE SR 24HR PO SCH (10:00)
[2021-02-17 11:12] LABS: BASOPHILS % 1.5 % (0.0-2.0); EOSINOPHILS % 2.5 % (0.0-5.0); HEMATOCRIT. 27.2 % (42.0-52.0); MEAN CORPUSCULAR HEMOGLOBIN 31.8 pg (28.0-32.0); MONOCYTES % 6.9 % (2.0-8.0); NEUTROPHILS % 71.1 % (40.0-76.0); PLATELET 313 x1000/uL (130-400); RED BLOOD CELL COUNT 2.83 mill/uL (4.7-6.1); RED CELL DISTRIBUTION WIDTH 15.8 % (11.6-14.6)
[2021-02-17 11:33] LABS: PHOSPHORUS 2.9 mg/dL (2.5-4.9)
[2021-02-17 20:00] VITALS: BP 146/76
[2021-02-17] MEDS: ATORVASTATIN CALCIUM 40MG TABLET PO SCH (20:00)
[2021-02-17] MEDS: DOXAZOSIN MESYLATE 4MG TABLET PO SCH (20:01)
[2021-02-18 08:00] VITALS: BP 174/80
[2021-02-18] MEDS: POLYETHYLENE GLYCOL 3350 (17GM) 1 DOSE PACK PO SCH (08:27)
[2021-02-18] MEDS: THIAMINE HCL 100MG TABLET PO SCH (08:27)
[2021-02-18] MEDS: ENOXAPARIN 30MG/0.3ML SYR SUBCUT SCH ×2 (08:27→20:09)
[2021-02-18] MEDS: DILTIAZEM HCL 300MG CAPSULE SR 24HR PO SCH (08:28)
[2021-02-18] MEDS: CLOPIDOGREL 75MG TABLET PO SCH (08:28)
[2021-02-18] MEDS: ASPIRIN 81MG TABLET PO SCH (08:28)
[2021-02-18] MEDS: FOLIC ACID 1MG TABLET PO SCH (08:28)
[2021-02-18] MEDS: ALLOPURINOL 100 MG TABLET PO SCH (08:28)
[2021-02-18] MEDS: DOCUSATE SODIUM 100MG CAPSULE PO SCH ×2 (08:28→17:26)
[2021-02-18 14:09] LABS: 25-HYDROXY VITAMIN D3 29 ng/mL (.)
[2021-02-18 20:00] VITALS: BP 149/80
[2021-02-18] MEDS: ATORVASTATIN CALCIUM 40MG TABLET PO SCH (20:09)
[2021-02-18] MEDS: DOXAZOSIN MESYLATE 4MG TABLET PO SCH (20:09)
[2021-02-19 08:00] VITALS: BP 136/65
[2021-02-19] MEDS: POLYETHYLENE GLYCOL 3350 (17GM) 1 DOSE PACK PO SCH (09:00)
[2021-02-19] MEDS: ENOXAPARIN 30MG/0.3ML SYR SUBCUT SCH ×2 (09:01→21:04)
[2021-02-19] MEDS: FOLIC ACID 1MG TABLET PO SCH (09:01)
[2021-02-19] MEDS: ALLOPURINOL 100 MG TABLET PO SCH (09:02)
[2021-02-19] MEDS: DILTIAZEM HCL 300MG CAPSULE SR 24HR PO SCH (09:02)
[2021-02-19] MEDS: ASPIRIN 81MG TABLET PO SCH (09:02)
[2021-02-19] MEDS: DOCUSATE SODIUM 100MG CAPSULE PO SCH ×2 (09:02→16:37)
[2021-02-19] MEDS: THIAMINE HCL 100MG TABLET PO SCH (09:02)
[2021-02-19] MEDS: CLOPIDOGREL 75MG TABLET PO SCH (09:02)
[2021-02-19] MEDS: ERGOCALCIFEROL 50000UNITS CAPSULE PO SCH (16:37)
[2021-02-19 20:00] VITALS: BP 155/79
[2021-02-19] MEDS: DOXAZOSIN MESYLATE 4MG TABLET PO SCH (21:05)
[2021-02-19] MEDS: ATORVASTATIN CALCIUM 40MG TABLET PO SCH (21:06)
[2021-02-20 06:53] LABS: EOSINOPHILS % 3.1 % (0.0-5.0); HEMATOCRIT. 25.7 % (42.0-52.0); HEMOGLOBIN. 8.8 g/dL (14.0-18.0); LYMPHOCYTES % 25.7 % (20.0-50.0); MEAN CORPUSCULAR HEMOGLOBIN 32.4 pg (28.0-32.0); MEAN PLATELET VOLUME 7.9 fl (7.4-10.4); MONOCYTES % 6.9 % (2.0-8.0); NEUTROPHILS % 63.3 % (40.0-76.0); PLATELET 282 x1000/uL (130-400); RED CELL DISTRIBUTION WIDTH 15.5 % (11.6-14.6)
[2021-02-20 07:57] LABS: PHOSPHORUS 2.9 mg/dL (2.5-4.9)
[2021-02-20] MEDS: ASPIRIN 81MG TABLET PO SCH (08:35)
[2021-02-20] MEDS: DILTIAZEM HCL 300MG CAPSULE SR 24HR PO SCH (08:36)
[2021-02-20] MEDS: DOCUSATE SODIUM 100MG CAPSULE PO SCH ×2 (08:36→16:18)
[2021-02-20] MEDS: ALLOPURINOL 100 MG TABLET PO SCH (08:36)
[2021-02-20] MEDS: FOLIC ACID 1MG TABLET PO SCH (08:36)
[2021-02-20] MEDS: THIAMINE HCL 100MG TABLET PO SCH (08:36)
[2021-02-20] MEDS: CLOPIDOGREL 75MG TABLET PO SCH (08:36)
[2021-02-20] MEDS: ENOXAPARIN 30MG/0.3ML SYR SUBCUT SCH ×2 (08:39→21:00)
[2021-02-20 08:40] VITALS: BP 149/76
[2021-02-20] MEDS: HYDRALAZINE HCL 25MG TABLET PO SCH ×2 (08:40→22:03)
[2021-02-20 08:47] VITALS: BP 130/66
[2021-02-20 08:51] VITALS: BP 118/54
[2021-02-20 15:00] VITALS: BP_SYST 82; BP_SYST 94; BP_SYST 95; BP_DIAS 46; BP_DIAS 52; BP_DIAS 54
[2021-02-20 15:15] VITALS: BP_SYST 109; BP_SYST 125; BP_SYST 134; BP_DIAS 56; BP_DIAS 58
[2021-02-20 20:00] VITALS: BP_SYST 122; BP_SYST 132; BP_DIAS 60; BP_DIAS 62
[2021-02-20] MEDS: ATORVASTATIN CALCIUM 40MG TABLET PO SCH (22:02)
[2021-02-20] MEDS: DOXAZOSIN MESYLATE 4MG TABLET PO SCH (22:02)
[2021-02-21 08:00] VITALS: BP 138/68
[2021-02-21] MEDS: DILTIAZEM HCL 300MG CAPSULE SR 24HR PO SCH (09:00)
[2021-02-21] MEDS: CLOPIDOGREL 75MG TABLET PO SCH (09:39)
[2021-02-21] MEDS: DOCUSATE SODIUM 100MG CAPSULE PO SCH ×2 (09:39→17:04)
[2021-02-21] MEDS: THIAMINE HCL 100MG TABLET PO SCH (09:40)
[2021-02-21] MEDS: ALLOPURINOL 100 MG TABLET PO SCH (09:40)
[2021-02-21] MEDS: FOLIC ACID 1MG TABLET PO SCH (09:40)
[2021-02-21] MEDS: ENOXAPARIN 30MG/0.3ML SYR SUBCUT SCH ×2 (09:40→21:51)
[2021-02-21] MEDS: ASPIRIN 81MG TABLET PO SCH (09:40)
[2021-02-21] MEDS ORDERED: HYDRALAZINE 20MG/ML VIAL IV PRN (19:15)
[2021-02-21] MEDS ORDERED: HYDRALAZINE 10 MG in SODIUM CHLORIDE 0.9% 49.5 ML IV PRN (19:30)
[2021-02-21 20:00] VITALS: BP_SYST 123; BP_SYST 130; BP_DIAS 62; BP_DIAS 68
[2021-02-21] MEDS: ATORVASTATIN CALCIUM 40MG TABLET PO SCH (21:52)
[2021-02-21] MEDS: DOXAZOSIN MESYLATE 4MG TABLET PO SCH (21:52)
[2021-02-22 08:16] VITALS: BP 160/85
[2021-02-22] MEDS: ALLOPURINOL 100 MG TABLET PO SCH (08:16)
[2021-02-22] MEDS: CLOPIDOGREL 75MG TABLET PO SCH (08:16)
[2021-02-22] MEDS: THIAMINE HCL 100MG TABLET PO SCH (08:16)
[2021-02-22] MEDS: DOCUSATE SODIUM 100MG CAPSULE PO SCH ×2 (08:16→17:13)
[2021-02-22] MEDS: ASPIRIN 81MG TABLET PO SCH (08:16)
[2021-02-22] MEDS: FOLIC ACID 1MG TABLET PO SCH (08:16)
[2021-02-22] MEDS: ENOXAPARIN 30MG/0.3ML SYR SUBCUT SCH ×2 (08:17→20:18)
[2021-02-22] MEDS ORDERED: POLYETHYLENE GLYCOL 3350 (17GM) 1 DOSE PACK PO SCH (09:00)
[2021-02-22 09:24] VITALS: BP 155/75
[2021-02-22] MEDS: COLCHICINE 0.6MG TABLET PO SCH (09:30)
[2021-02-22] MEDS: AMLODIPINE 5MG TABLET PO SCH (09:30)
[2021-02-22 10:05] VITALS: BP 148/75
[2021-02-22] MEDS: ACETAMINOPHEN 325MG TABLET PO PRN (14:44)
[2021-02-22 20:00] VITALS: BP 119/94
[2021-02-22] MEDS: ATORVASTATIN CALCIUM 40MG TABLET PO SCH (20:17)
[2021-02-22] MEDS: DOXAZOSIN MESYLATE 4MG TABLET PO SCH (20:18)
[2021-02-23 06:13] LABS: BASOPHILS % 0.7 % (0.0-2.0); EOSINOPHILS % 3.1 % (0.0-5.0); HEMATOCRIT. 26.1 % (42.0-52.0); HEMOGLOBIN. 8.9 g/dL (14.0-18.0); MEAN CORPUSCULAR HEMOGLOBIN 32.4 pg (28.0-32.0); MONOCYTES % 7.6 % (2.0-8.0); NEUTROPHILS % 59.6 % (40.0-76.0); PLATELET 278 x1000/uL (130-400); RED BLOOD CELL COUNT 2.75 mill/uL (4.7-6.1); RED CELL DISTRIBUTION WIDTH 16.5 % (11.6-14.6)
[2021-02-23 08:00] VITALS: BP 141/67
[2021-02-23] MEDS: THIAMINE HCL 100MG TABLET PO SCH (09:53)
[2021-02-23] MEDS: CLOPIDOGREL 75MG TABLET PO SCH (09:53)
[2021-02-23] MEDS: COLCHICINE 0.6MG TABLET PO SCH (09:53)
[2021-02-23] MEDS: ALLOPURINOL 100 MG TABLET PO SCH (09:53)
[2021-02-23] MEDS: FOLIC ACID 1MG TABLET PO SCH (09:53)
[2021-02-23] MEDS: ACETAMINOPHEN 325MG TABLET PO PRN (09:54)
[2021-02-23] MEDS: AMLODIPINE 5MG TABLET PO SCH (09:54)
[2021-02-23] MEDS: ASPIRIN 81MG TABLET PO SCH (09:55)
[2021-02-23] MEDS: ENOXAPARIN 30MG/0.3ML SYR SUBCUT SCH ×2 (09:55→20:26)
[2021-02-23] MEDS: DOCUSATE SODIUM 100MG CAPSULE PO SCH ×2 (10:03→17:00)
[2021-02-23 20:00] VITALS: BP 147/74
[2021-02-23] MEDS: ATORVASTATIN CALCIUM 40MG TABLET PO SCH (20:26)
[2021-02-23] MEDS: DOXAZOSIN MESYLATE 4MG TABLET PO SCH (20:27)
[2021-02-24 07:47] VITALS: BP 145/72
[2021-02-24] MEDS: CLOPIDOGREL 75MG TABLET PO SCH (09:40)
[2021-02-24] MEDS: ASPIRIN 81MG TABLET PO SCH (09:40)
[2021-02-24] MEDS: DOCUSATE SODIUM 100MG CAPSULE PO SCH ×2 (09:40→17:06)
[2021-02-24] MEDS: AMLODIPINE 5MG TABLET PO SCH (09:41)
[2021-02-24] MEDS: ALLOPURINOL 100 MG TABLET PO SCH (09:41)
[2021-02-24] MEDS: THIAMINE HCL 100MG TABLET PO SCH (09:41)
[2021-02-24] MEDS: ENOXAPARIN 30MG/0.3ML SYR SUBCUT SCH ×2 (09:41→20:55)
[2021-02-24] MEDS: FOLIC ACID 1MG TABLET PO SCH (09:41)
[2021-02-24] MEDS: COLCHICINE 0.6MG TABLET PO SCH (09:41)
[2021-02-24 20:00] VITALS: BP_SYST 141; BP_SYST 146; BP_SYST 182; BP_DIAS 55; BP_DIAS 76; BP_DIAS 89
[2021-02-24] MEDS: DOXAZOSIN MESYLATE 4MG TABLET PO SCH (20:55)
[2021-02-24] MEDS: ATORVASTATIN CALCIUM 40MG TABLET PO SCH (20:55)
[2021-02-25 08:30] VITALS: BP 142/70
[2021-02-25] MEDS: COLCHICINE 0.6MG TABLET PO SCH (09:17)
[2021-02-25] MEDS: DOCUSATE SODIUM 100MG CAPSULE PO SCH ×2 (09:17→16:52)
[2021-02-25] MEDS: ASPIRIN 81MG TABLET PO SCH (09:17)
[2021-02-25] MEDS: CLOPIDOGREL 75MG TABLET PO SCH (09:18)
[2021-02-25] MEDS: AMLODIPINE 5MG TABLET PO SCH (09:18)
[2021-02-25] MEDS: ALLOPURINOL 100 MG TABLET PO SCH (09:19)
[2021-02-25] MEDS: ENOXAPARIN 30MG/0.3ML SYR SUBCUT SCH ×2 (09:21→21:37)
[2021-02-25] MEDS: FOLIC ACID 1MG TABLET PO SCH (09:25)
[2021-02-25] MEDS: THIAMINE HCL 100MG TABLET PO SCH (09:26)
[2021-02-25 20:00] VITALS: BP 144/69
[2021-02-25] MEDS: ATORVASTATIN CALCIUM 40MG TABLET PO SCH (21:37)
[2021-02-25] MEDS: DOXAZOSIN MESYLATE 4MG TABLET PO SCH (21:38)
[2021-02-26 06:37] LABS: HEMATOCRIT. 25.8 % (42.0-52.0); HEMOGLOBIN. 8.7 g/dL (14.0-18.0); LYMPHOCYTES % 28.3 % (20.0-50.0); MEAN CORPUSCULAR HEMOGLOBIN 32.1 pg (28.0-32.0); MEAN CORPUSCULAR VOLUME 94.7 fL (80.0-94.0); MEAN PLATELET VOLUME 8.1 fl (7.4-10.4); MONOCYTES % 7.2 % (2.0-8.0); NEUTROPHILS % 60.5 % (40.0-76.0); PLATELET 263 x1000/uL (130-400); RED BLOOD CELL COUNT 2.72 mill/uL (4.7-6.1)
[2021-02-26 08:00] VITALS: BP 136/63
[2021-02-26] MEDS: DOCUSATE SODIUM 100MG CAPSULE PO SCH ×2 (08:41→17:48)
[2021-02-26] MEDS: AMLODIPINE 5MG TABLET PO SCH (08:41)
[2021-02-26] MEDS: ASPIRIN 81MG TABLET PO SCH (08:42)
[2021-02-26] MEDS: CLOPIDOGREL 75MG TABLET PO SCH (08:42)
[2021-02-26] MEDS: ALLOPURINOL 100 MG TABLET PO SCH (08:42)
[2021-02-26] MEDS: FOLIC ACID 1MG TABLET PO SCH (08:42)
[2021-02-26] MEDS: THIAMINE HCL 100MG TABLET PO SCH (08:42)
[2021-02-26] MEDS: ENOXAPARIN 30MG/0.3ML SYR SUBCUT SCH ×2 (08:42→21:31)
[2021-02-26] MEDS: ERGOCALCIFEROL 50000UNITS CAPSULE PO SCH (08:42)
[2021-02-26] MEDS: COLCHICINE 0.6MG TABLET PO SCH (08:42)
[2021-02-26 20:00] VITALS: BP 157/74
[2021-02-26] MEDS: ATORVASTATIN CALCIUM 40MG TABLET PO SCH (21:30)
[2021-02-26] MEDS: DOXAZOSIN MESYLATE 4MG TABLET PO SCH (21:31)
[2021-02-27 08:00] VITALS: BP 135/75
[2021-02-27] MEDS: ASPIRIN 81MG TABLET PO SCH (09:28)
[2021-02-27] MEDS: FOLIC ACID 1MG TABLET PO SCH (09:29)
[2021-02-27] MEDS: DOCUSATE SODIUM 100MG CAPSULE PO SCH ×2 (09:29→18:07)
[2021-02-27] MEDS: THIAMINE HCL 100MG TABLET PO SCH (09:29)
[2021-02-27] MEDS: CLOPIDOGREL 75MG TABLET PO SCH (09:29)
[2021-02-27] MEDS: ALLOPURINOL 100 MG TABLET PO SCH (09:29)
[2021-02-27] MEDS: AMLODIPINE 5MG TABLET PO SCH (09:29)
[2021-02-27] MEDS: ENOXAPARIN 30MG/0.3ML SYR SUBCUT SCH ×2 (09:30→20:31)
[2021-02-27] MEDS ORDERED: IPRATROPIUM/ALBUTEROL 0.5-3(2.5)MG/3ML NEB HHN PRN (16:30)
[2021-02-27 20:00] VITALS: BP 146/77
[2021-02-27] MEDS: DOXAZOSIN MESYLATE 4MG TABLET PO SCH (20:30)
[2021-02-27] MEDS: ATORVASTATIN CALCIUM 40MG TABLET PO SCH (20:30)
[2021-02-28 08:00] VITALS: BP 134/57
[2021-02-28] MEDS: ASPIRIN 81MG TABLET PO SCH (08:41)
[2021-02-28] MEDS: THIAMINE HCL 100MG TABLET PO SCH (08:42)
[2021-02-28] MEDS: FOLIC ACID 1MG TABLET PO SCH (08:42)
[2021-02-28] MEDS: DOCUSATE SODIUM 100MG CAPSULE PO SCH ×2 (08:42→16:46)
[2021-02-28] MEDS: ALLOPURINOL 100 MG TABLET PO SCH (08:42)
[2021-02-28] MEDS: AMLODIPINE 5MG TABLET PO SCH (08:42)
[2021-02-28] MEDS: CLOPIDOGREL 75MG TABLET PO SCH (08:42)
[2021-02-28] MEDS: ENOXAPARIN 30MG/0.3ML SYR SUBCUT SCH ×2 (08:45→21:59)
[2021-02-28 10:01] VITALS: BP_SYST 138; BP_SYST 139; BP_SYST 176; BP_DIAS 67; BP_DIAS 68; BP_DIAS 81
[2021-02-28 20:00] VITALS: BP 147/47
[2021-02-28] MEDS: ATORVASTATIN CALCIUM 40MG TABLET PO SCH (21:58)
[2021-02-28] MEDS: DOXAZOSIN MESYLATE 4MG TABLET PO SCH (21:58)
[2021-03-01 07:07] LABS: BASOPHILS % 0.9 % (0.0-2.0); EOSINOPHILS % 2.5 % (0.0-5.0); HEMATOCRIT. 26.9 % (42.0-52.0); LYMPHOCYTES % 29.6 % (20.0-50.0); MEAN CORPUSCULAR HEMOGLOBIN 32.4 pg (28.0-32.0); MEAN CORPUSCULAR VOLUME 96.5 fL (80.0-94.0); MEAN PLATELET VOLUME 8.2 fl (7.4-10.4); MONOCYTES % 6.8 % (2.0-8.0); NEUTROPHILS % 60.2 % (40.0-76.0); PLATELET 258 x1000/uL (130-400); RED BLOOD CELL COUNT 2.78 mill/uL (4.7-6.1); RED CELL DISTRIBUTION WIDTH 16.6 % (11.6-14.6)
[2021-03-01 07:16] LABS: CHLORIDE 109 mEq/L (98-107)
[2021-03-01 08:00] VITALS: BP 137/72
[2021-03-01] MEDS: ALLOPURINOL 100 MG TABLET PO SCH (10:00)
[2021-03-01] MEDS: THIAMINE HCL 100MG TABLET PO SCH (10:00)
[2021-03-01] MEDS: ASPIRIN 81MG TABLET PO SCH (10:00)
[2021-03-01] MEDS: DOCUSATE SODIUM 100MG CAPSULE PO SCH ×2 (10:00→17:50)
[2021-03-01] MEDS: FOLIC ACID 1MG TABLET PO SCH (10:00)
[2021-03-01] MEDS: ENOXAPARIN 30MG/0.3ML SYR SUBCUT SCH ×2 (10:01→22:04)
[2021-03-01] MEDS: CLOPIDOGREL 75MG TABLET PO SCH (10:01)
[2021-03-01] MEDS: AMLODIPINE 5MG TABLET PO SCH (10:01)
[2021-03-01] MEDS: NEOMYCIN/BACITRACIN/POLYMYXIN OINT 14GM TOP SCH (18:26)
[2021-03-01 20:00] VITALS: BP 117/59
[2021-03-01] MEDS: DOXAZOSIN MESYLATE 4MG TABLET PO SCH (21:00)
[2021-03-01] MEDS: ATORVASTATIN CALCIUM 40MG TABLET PO SCH (22:03)
[2021-03-02 08:00] VITALS: BP 147/68
[2021-03-02] MEDS: ASPIRIN 81MG TABLET PO SCH (09:46)
[2021-03-02] MEDS: FOLIC ACID 1MG TABLET PO SCH (09:46)
[2021-03-02] MEDS: DOCUSATE SODIUM 100MG CAPSULE PO SCH ×2 (09:47→17:36)
[2021-03-02] MEDS: AMLODIPINE 5MG TABLET PO SCH (09:47)
[2021-03-02] MEDS: THIAMINE HCL 100MG TABLET PO SCH (09:47)
[2021-03-02] MEDS: CLOPIDOGREL 75MG TABLET PO SCH (09:47)
[2021-03-02] MEDS: NEOMYCIN/BACITRACIN/POLYMYXIN OINT 14GM TOP SCH ×2 (09:48→21:20)
[2021-03-02] MEDS: ENOXAPARIN 30MG/0.3ML SYR SUBCUT SCH ×2 (09:48→21:20)
[2021-03-02] MEDS: ALLOPURINOL 100 MG TABLET PO SCH (10:36)
[2021-03-02] MEDS: LACTULOSE 20G/30ML UDC PO SCH ×2 (19:00→21:19)
[2021-03-02 20:00] VITALS: BP_SYST 122; BP_SYST 161; BP_DIAS 84; BP_DIAS 86
[2021-03-02] MEDS: DOXAZOSIN MESYLATE 4MG TABLET PO SCH (21:19)
[2021-03-02] MEDS: ATORVASTATIN CALCIUM 40MG TABLET PO SCH (21:19)
[2021-03-03 07:58] VITALS: BP 128/60
[2021-03-03] MEDS: ASPIRIN 81MG TABLET PO SCH (10:02)
[2021-03-03] MEDS: DOCUSATE SODIUM 100MG CAPSULE PO SCH ×2 (10:03→17:25)
[2021-03-03] MEDS: FOLIC ACID 1MG TABLET PO SCH (10:03)
[2021-03-03] MEDS: CLOPIDOGREL 75MG TABLET PO SCH (10:04)
[2021-03-03] MEDS: AMLODIPINE 5MG TABLET PO SCH (10:04)
[2021-03-03] MEDS: THIAMINE HCL 100MG TABLET PO SCH (10:08)
[2021-03-03] MEDS: ALLOPURINOL 100 MG TABLET PO SCH (10:10)
[2021-03-03] MEDS: NEOMYCIN/BACITRACIN/POLYMYXIN OINT 14GM TOP SCH ×2 (10:11→20:29)
[2021-03-03] MEDS: ENOXAPARIN 30MG/0.3ML SYR SUBCUT SCH ×2 (12:50→20:29)
[2021-03-03] MEDS: PETROLATUM,WHITE OINTMENT 100GM JAR TOP SCH ×2 (16:13→21:42)
[2021-03-03 16:59] LABS: BASOPHILS % 0.7 % (0.0-2.0); EOSINOPHILS % 2.1 % (0.0-5.0); HEMATOCRIT. 27.7 % (42.0-52.0); HEMOGLOBIN. 9.2 g/dL (14.0-18.0); LYMPHOCYTES % 22.7 % (20.0-50.0); MEAN CORPUSCULAR HEMOGLOBIN 32.3 pg (28.0-32.0); MEAN CORPUSCULAR VOLUME 96.7 fL (80.0-94.0); MEAN PLATELET VOLUME 8.3 fl (7.4-10.4); MONOCYTES % 6.8 % (2.0-8.0); NEUTROPHILS % 67.7 % (40.0-76.0); PLATELET 259 x1000/uL (130-400); RED BLOOD CELL COUNT 2.86 mill/uL (4.7-6.1); RED CELL DISTRIBUTION WIDTH 16.5 % (11.6-14.6)
[2021-03-03 17:13] LABS: PHOSPHORUS 3.1 mg/dL (2.5-4.9)
[2021-03-03 20:00] VITALS: BP 138/68
[2021-03-03] MEDS: DOXAZOSIN MESYLATE 4MG TABLET PO SCH (20:28)
[2021-03-03] MEDS: ATORVASTATIN CALCIUM 40MG TABLET PO SCH (20:28)
[2021-03-04 08:00] VITALS: BP 150/74
[2021-03-04] MEDS: ASPIRIN 81MG TABLET PO SCH (08:57)
[2021-03-04] MEDS: CLOPIDOGREL 75MG TABLET PO SCH (08:57)
[2021-03-04] MEDS: ALLOPURINOL 100 MG TABLET PO SCH (08:57)
[2021-03-04] MEDS: THIAMINE HCL 100MG TABLET PO SCH (08:57)
[2021-03-04] MEDS: AMLODIPINE 5MG TABLET PO SCH (08:57)
[2021-03-04] MEDS: FOLIC ACID 1MG TABLET PO SCH (08:57)
[2021-03-04] MEDS: DOCUSATE SODIUM 100MG CAPSULE PO SCH ×2 (08:57→16:24)
[2021-03-04] MEDS: NEOMYCIN/BACITRACIN/POLYMYXIN OINT 14GM TOP SCH ×2 (08:58→20:42)
[2021-03-04] MEDS: PETROLATUM,WHITE OINTMENT 100GM JAR TOP SCH ×2 (08:58→20:42)
[2021-03-04] MEDS: ENOXAPARIN 30MG/0.3ML SYR SUBCUT SCH ×2 (08:58→20:42)
[2021-03-04 20:00] VITALS: BP 159/74
[2021-03-04] MEDS: ATORVASTATIN CALCIUM 40MG TABLET PO SCH (20:43)
[2021-03-04] MEDS: DOXAZOSIN MESYLATE 4MG TABLET PO SCH (21:44)
[2021-03-05 06:58] LABS: BASOPHILS % 0.9 % (0.0-2.0); EOSINOPHILS % 2.3 % (0.0-5.0); HEMATOCRIT. 26.4 % (42.0-52.0); LYMPHOCYTES % 23.3 % (20.0-50.0); MEAN CORPUSCULAR HEMOGLOBIN 32.6 pg (28.0-32.0); MEAN CORPUSCULAR VOLUME 96.1 fL (80.0-94.0); MEAN PLATELET VOLUME 8.4 fl (7.4-10.4); MONOCYTES % 6.7 % (2.0-8.0); NEUTROPHILS % 66.8 % (40.0-76.0); PLATELET 225 x1000/uL (130-400); RED BLOOD CELL COUNT 2.75 mill/uL (4.7-6.1); RED CELL DISTRIBUTION WIDTH 16.5 % (11.6-14.6)
[2021-03-05 08:19] LABS: PHOSPHORUS 3.1 mg/dL (2.5-4.9)
[2021-03-05 09:15] VITALS: BP 174/71
[2021-03-05] MEDS: DOCUSATE SODIUM 100MG CAPSULE PO SCH ×2 (09:55→17:58)
[2021-03-05] MEDS: ERGOCALCIFEROL 50000UNITS CAPSULE PO SCH (09:55)
[2021-03-05] MEDS: CLOPIDOGREL 75MG TABLET PO SCH (09:55)
[2021-03-05] MEDS: ASPIRIN 81MG TABLET PO SCH (09:55)
[2021-03-05] MEDS: ALLOPURINOL 100 MG TABLET PO SCH (09:55)
[2021-03-05] MEDS: THIAMINE HCL 100MG TABLET PO SCH (09:55)
[2021-03-05] MEDS: FOLIC ACID 1MG TABLET PO SCH (09:55)
[2021-03-05] MEDS: AMLODIPINE 5MG TABLET PO SCH (09:56)
[2021-03-05] MEDS: ENOXAPARIN 30MG/0.3ML SYR SUBCUT SCH ×2 (09:57→21:04)
[2021-03-05] MEDS: NEOMYCIN/BACITRACIN/POLYMYXIN OINT 14GM TOP SCH ×2 (10:00→21:08)
[2021-03-05] MEDS: PETROLATUM,WHITE OINTMENT 100GM JAR TOP SCH ×2 (10:00→21:09)
[2021-03-05 20:00] VITALS: BP 164/75
[2021-03-05] MEDS: ATORVASTATIN CALCIUM 40MG TABLET PO SCH (21:03)
[2021-03-05] MEDS: DOXAZOSIN MESYLATE 4MG TABLET PO SCH (21:03)
[2021-03-06 06:25] LABS: BASOPHILS % 0.8 % (0.0-2.0); EOSINOPHILS % 2.2 % (0.0-5.0); HEMATOCRIT. 26.6 % (42.0-52.0); LYMPHOCYTES % 22.9 % (20.0-50.0); MEAN CORPUSCULAR HEMOGLOBIN 32.4 pg (28.0-32.0); MEAN CORPUSCULAR VOLUME 95.5 fL (80.0-94.0); MEAN PLATELET VOLUME 8.3 fl (7.4-10.4); MONOCYTES % 6.7 % (2.0-8.0); NEUTROPHILS % 67.4 % (40.0-76.0); PLATELET 233 x1000/uL (130-400); RED BLOOD CELL COUNT 2.78 mill/uL (4.7-6.1); RED CELL DISTRIBUTION WIDTH 16.7 % (11.6-14.6)
[2021-03-06 08:00] VITALS: BP 141/81
[2021-03-06] MEDS: DOCUSATE SODIUM 100MG CAPSULE PO SCH ×2 (09:47→17:20)
[2021-03-06] MEDS: THIAMINE HCL 100MG TABLET PO SCH (09:47)
[2021-03-06] MEDS: ASPIRIN 81MG TABLET PO SCH (09:47)
[2021-03-06] MEDS: FOLIC ACID 1MG TABLET PO SCH (09:47)
[2021-03-06] MEDS: ALLOPURINOL 100 MG TABLET PO SCH (09:48)
[2021-03-06] MEDS: CLOPIDOGREL 75MG TABLET PO SCH (09:48)
[2021-03-06] MEDS: ENOXAPARIN 30MG/0.3ML SYR SUBCUT SCH ×2 (10:05→22:06)
[2021-03-06] MEDS: AMLODIPINE 5MG TABLET PO SCH (10:10)
[2021-03-06] MEDS: NEOMYCIN/BACITRACIN/POLYMYXIN OINT 14GM TOP SCH ×2 (10:15→22:04)
[2021-03-06] MEDS: PETROLATUM,WHITE OINTMENT 100GM JAR TOP SCH ×2 (10:15→22:03)
[2021-03-06 20:00] VITALS: BP 138/68
[2021-03-06] MEDS: ATORVASTATIN CALCIUM 40MG TABLET PO SCH (22:05)
[2021-03-06] MEDS: DOXAZOSIN MESYLATE 4MG TABLET PO SCH (22:05)
[2021-03-07 08:11] VITALS: BP 138/67
[2021-03-07] MEDS: CLOPIDOGREL 75MG TABLET PO SCH (08:23)
[2021-03-07] MEDS: FOLIC ACID 1MG TABLET PO SCH (08:23)
[2021-03-07] MEDS: DOCUSATE SODIUM 100MG CAPSULE PO SCH ×2 (08:24→17:47)
[2021-03-07] MEDS: THIAMINE HCL 100MG TABLET PO SCH (08:24)
[2021-03-07] MEDS: ASPIRIN 81MG TABLET PO SCH (08:24)
[2021-03-07] MEDS: ALLOPURINOL 100 MG TABLET PO SCH (08:24)
[2021-03-07] MEDS: ENOXAPARIN 30MG/0.3ML SYR SUBCUT SCH ×2 (08:24→21:03)
[2021-03-07] MEDS: AMLODIPINE 5MG TABLET PO SCH (08:24)
[2021-03-07] MEDS: PETROLATUM,WHITE OINTMENT 100GM JAR TOP SCH ×2 (12:24→21:05)
[2021-03-07] MEDS: NEOMYCIN/BACITRACIN/POLYMYXIN OINT 14GM TOP SCH ×2 (12:24→21:04)
[2021-03-07 20:00] VITALS: BP 152/71
[2021-03-07] MEDS: OXYBUTYNIN CHLORIDE 5MG TABLET PO SCH (21:04)
[2021-03-07] MEDS: ATORVASTATIN CALCIUM 40MG TABLET PO SCH (21:04)
[2021-03-07] MEDS: DOXAZOSIN MESYLATE 4MG TABLET PO SCH (21:04)
[2021-03-08 04:30] VITALS: BP_SYST 129; BP_SYST 141; BP_DIAS 66; BP_DIAS 71
[2021-03-08 07:22] LABS: BASOPHILS % 0.8 % (0.0-2.0); EOSINOPHILS % 3.6 % (0.0-5.0); HEMATOCRIT. 25.7 % (42.0-52.0); HEMOGLOBIN. 8.6 g/dL (14.0-18.0); LYMPHOCYTES % 26.8 % (20.0-50.0); MEAN CORPUSCULAR VOLUME 95.8 fL (80.0-94.0); MEAN PLATELET VOLUME 8.5 fl (7.4-10.4); MONOCYTES % 7.7 % (2.0-8.0); NEUTROPHILS % 61.1 % (40.0-76.0); PLATELET 224 x1000/uL (130-400); RED BLOOD CELL COUNT 2.69 mill/uL (4.7-6.1); RED CELL DISTRIBUTION WIDTH 16.2 % (11.6-14.6)
[2021-03-08 08:30] VITALS: BP 129/67
[2021-03-08] MEDS: PETROLATUM,WHITE OINTMENT 100GM JAR TOP SCH ×2 (09:00→22:18)
[2021-03-08] MEDS: NEOMYCIN/BACITRACIN/POLYMYXIN OINT 14GM TOP SCH ×2 (09:00→22:18)
[2021-03-08] MEDS: AMLODIPINE 5MG TABLET PO SCH (10:33)
[2021-03-08] MEDS: FOLIC ACID 1MG TABLET PO SCH (10:33)
[2021-03-08] MEDS: THIAMINE HCL 100MG TABLET PO SCH (10:33)
[2021-03-08] MEDS: OXYBUTYNIN CHLORIDE 5MG TABLET PO SCH ×2 (10:34→22:19)
[2021-03-08] MEDS: DOCUSATE SODIUM 100MG CAPSULE PO SCH ×2 (10:34→17:57)
[2021-03-08] MEDS: ALLOPURINOL 100 MG TABLET PO SCH (10:34)
[2021-03-08] MEDS: ASPIRIN 81MG TABLET PO SCH (10:34)
[2021-03-08] MEDS: CLOPIDOGREL 75MG TABLET PO SCH (10:34)
[2021-03-08] MEDS: ENOXAPARIN 30MG/0.3ML SYR SUBCUT SCH ×2 (10:34→22:24)
[2021-03-08 20:00] VITALS: BP 124/61
[2021-03-08] MEDS: DOXAZOSIN MESYLATE 4MG TABLET PO SCH (22:19)
[2021-03-08] MEDS: ATORVASTATIN CALCIUM 40MG TABLET PO SCH (22:19)
[2021-03-09 08:00] VITALS: BP 130/63
[2021-03-09] MEDS: THIAMINE HCL 100MG TABLET PO SCH (09:20)
[2021-03-09] MEDS: CLOPIDOGREL 75MG TABLET PO SCH (09:20)
[2021-03-09] MEDS: ASPIRIN 81MG TABLET PO SCH (09:20)
[2021-03-09] MEDS: OXYBUTYNIN CHLORIDE 5MG TABLET PO SCH ×2 (09:20→21:53)
[2021-03-09] MEDS: FOLIC ACID 1MG TABLET PO SCH (09:20)
[2021-03-09] MEDS: DOCUSATE SODIUM 100MG CAPSULE PO SCH ×2 (09:20→17:04)
[2021-03-09] MEDS: AMLODIPINE 5MG TABLET PO SCH (09:20)
[2021-03-09] MEDS: ALLOPURINOL 100 MG TABLET PO SCH (09:20)
[2021-03-09] MEDS: ENOXAPARIN 30MG/0.3ML SYR SUBCUT SCH ×2 (09:21→21:51)
[2021-03-09] MEDS: NEOMYCIN/BACITRACIN/POLYMYXIN OINT 14GM TOP SCH ×2 (09:22→21:51)
[2021-03-09] MEDS: PETROLATUM,WHITE OINTMENT 100GM JAR TOP SCH ×2 (09:22→21:51)
[2021-03-09 14:19] VITALS: BP 121/62
[2021-03-09 14:20] VITALS: BP 93/72
[2021-03-09 20:00] VITALS: BP 132/73
[2021-03-09] MEDS: DOXAZOSIN MESYLATE 4MG TABLET PO SCH (21:52)
[2021-03-09] MEDS: ATORVASTATIN CALCIUM 40MG TABLET PO SCH (21:53)
[2021-03-10 08:00] VITALS: BP 128/70
[2021-03-10] MEDS: ASPIRIN 81MG TABLET PO SCH (09:19)
[2021-03-10] MEDS: FOLIC ACID 1MG TABLET PO SCH (09:19)
[2021-03-10] MEDS: DOCUSATE SODIUM 100MG CAPSULE PO SCH ×2 (09:19→17:00)
[2021-03-10] MEDS: OXYBUTYNIN CHLORIDE 5MG TABLET PO SCH ×2 (09:19→21:38)
[2021-03-10] MEDS: THIAMINE HCL 100MG TABLET PO SCH (09:20)
[2021-03-10] MEDS: ALLOPURINOL 100 MG TABLET PO SCH (09:20)
[2021-03-10] MEDS: AMLODIPINE 5MG TABLET PO SCH (09:20)
[2021-03-10] MEDS: CLOPIDOGREL 75MG TABLET PO SCH (09:20)
[2021-03-10] MEDS: NEOMYCIN/BACITRACIN/POLYMYXIN OINT 14GM TOP SCH ×2 (09:21→21:38)
[2021-03-10] MEDS: PETROLATUM,WHITE OINTMENT 100GM JAR TOP SCH ×2 (09:21→21:00)
[2021-03-10] MEDS ORDERED: ASPI-1160 PO (11:06)
[2021-03-10] MEDS ORDERED: LIP40 PO (11:06)
[2021-03-10] MEDS ORDERED: FOLI-43 PO (11:06)
[2021-03-10] MEDS ORDERED: ALLO100T PO (11:06)
[2021-03-10] MEDS ORDERED: THIA100T72 PO ×2 (11:06)
[2021-03-10] MEDS ORDERED: DOXA4TAB2 PO (11:06)
[2021-03-10] MEDS ORDERED: AMLO5TAB88 PO (11:06)
[2021-03-10] MEDS ORDERED: OXYB5TAB16 PO ×2 (11:06)
[2021-03-10] MEDS ORDERED: CLOP75TA15 PO (11:06)
[2021-03-10] MEDS: ENOXAPARIN 30MG/0.3ML SYR SUBCUT SCH ×2 (12:06→21:40)
[2021-03-10 20:00] VITALS: BP 129/64
[2021-03-10] MEDS: DOXAZOSIN MESYLATE 4MG TABLET PO SCH (21:37)
[2021-03-10] MEDS: ATORVASTATIN CALCIUM 40MG TABLET PO SCH (21:38)
[2021-03-11 08:00] VITALS: BP 150/70
[2021-03-11] MEDS: FOLIC ACID 1MG TABLET PO SCH (08:48)
[2021-03-11] MEDS: ASPIRIN 81MG TABLET PO SCH (08:48)
[2021-03-11] MEDS: THIAMINE HCL 100MG TABLET PO SCH (08:48)
[2021-03-11] MEDS: CLOPIDOGREL 75MG TABLET PO SCH (08:50)
[2021-03-11] MEDS: ALLOPURINOL 100 MG TABLET PO SCH (08:51)
[2021-03-11] MEDS: DOCUSATE SODIUM 100MG CAPSULE PO SCH (08:51)
[2021-03-11] MEDS: ENOXAPARIN 30MG/0.3ML SYR SUBCUT SCH (08:51)
[2021-03-11] MEDS: OXYBUTYNIN CHLORIDE 5MG TABLET PO SCH (08:51)
[2021-03-11] MEDS: AMLODIPINE 5MG TABLET PO SCH ×2 (08:56→09:26)
[2021-03-11] MEDS: PETROLATUM,WHITE OINTMENT 100GM JAR TOP SCH (09:28)
[2021-03-11] MEDS: NEOMYCIN/BACITRACIN/POLYMYXIN OINT 14GM TOP SCH (09:28)
[2021-03-11 10:50] VITALS: BP 150/70
== END 2021-03-11 16:04 | disposition home health service (06) | DRG 56 ==
LOC: 4WST 16:25
PROVIDERS: ADMIT Physical Medicine & Rehabilitation Spinal Cord Injury Medicine; ATTEND Internal Medicine
DX: I69.351 Hemiplegia and hemiparesis following cerebral infarction affecting right dominant side (principal); I63.9 Cerebral infarction, unspecified; G82.50 Quadriplegia, unspecified; G92.8 Other toxic encephalopathy; I31.3 Pericardial effusion (noninflammatory); J98.11 Atelectasis; M62.82 Rhabdomyolysis; N17.9 Acute kidney failure, unspecified; E46 Unspecified protein-calorie malnutrition; I42.9 Cardiomyopathy, unspecified; D53.9 Nutritional anemia, unspecified; E53.8 Deficiency of other specified B group vitamins; E78.00 Pure hypercholesterolemia, unspecified; E87.6 Hypokalemia; I65.23 Occlusion and stenosis of bilateral carotid arteries; R13.10 Dysphagia, unspecified; Z82.49 Family history of ischemic heart disease and other diseases of the circulatory system; E78.5 Hyperlipidemia, unspecified; E88.81 Metabolic syndrome and other insulin resistance; G89.29 Other chronic pain; M16.0 Bilateral primary osteoarthritis of hip; M54.50 Low back pain, unspecified; I13.10 Hypertensive heart and chronic kidney disease without heart failure, with stage 1 through stage 4 chronic kidney disease, or unspecified chronic kidney disease; M10.9 Gout, unspecified; N18.32 Chronic kidney disease, stage 3b; R80.9 Proteinuria, unspecified; R53.81 Other malaise; N20.0 Calculus of kidney; I25.10 Atherosclerotic heart disease of native coronary artery without angina pectoris; J44.9 Chronic obstructive pulmonary disease, unspecified; N39.41 Urge incontinence; I95.1 Orthostatic hypotension; M25.521 Pain in right elbow; B35.1 Tinea unguium; E55.9 Vitamin D deficiency, unspecified; I35.0 Nonrheumatic aortic (valve) stenosis; F39 Unspecified mood [affective] disorder; F01.50 Vascular dementia, unspecified severity, without behavioral disturbance, psychotic disturbance, mood disturbance, and anxiety; I69.322 Dysarthria following cerebral infarction; I69.320 Aphasia following cerebral infarction; Z87.891 Personal history of nicotine dependence; I69.391 Dysphagia following cerebral infarction; Z79.899 Other long term (current) drug therapy; Z68.33 Body mass index [BMI] 33.0-33.9, adult
CPT/HCPCS: 36415; 80048; 80053; 82306; 82607; 82728; 82746; 83540; 83550; 83735; 84100; 84134; 84153; 84439; 84443; 85025; 92523; 92610; 93970; 97110; 97112; 97116; 97162; 97166; 97530; 97535; J1650; J3420; G0103

== ENCOUNTER 2021-03-15 09:22 | Emergency (ER) | payer BC ==
[~2021-03-15] VITALS: Ht 185.4 cm; Wt 91.0 kg
[~2021-03-15 09:22] MED LIST: ALLO100T PO; AMLO5TAB88 PO; ASPI-1160 PO; CLOP75TA15 PO; DOXA4TAB2 PO; FOLI-43 PO; LIP40 PO; OXYB5TAB16 PO; THIA100T72 PO
[2021-03-15] MEDS ORDERED: ACETAMINOPHEN 325MG TABLET PO ONE (09:45)
[2021-03-15 11:12] LABS: BASOPHILS % 0.8 % (0.0-2.0); EOSINOPHILS % 1.8 % (0.0-5.0); HEMATOCRIT. 32.5 % (42.0-52.0); HEMOGLOBIN. 10.8 g/dL (14.0-18.0); LYMPHOCYTES % 16.1 % (20.0-50.0); MEAN CORPUSCULAR HEMOGLOBIN 31.6 pg (28.0-32.0); MEAN CORPUSCULAR VOLUME 95.3 fL (80.0-94.0); MONOCYTES % 5.4 % (2.0-8.0); NEUTROPHILS % 75.9 % (40.0-76.0); PLATELET 257 x1000/uL (130-400); RED BLOOD CELL COUNT 3.41 mill/uL (4.7-6.1); RED CELL DISTRIBUTION WIDTH 15.9 % (11.6-14.6)
[2021-03-15 11:17] LABS: CHLORIDE 105 mEq/L (98-107)
[2021-03-15] MEDS ORDERED: TOPUD PO (12:06)
[2021-03-15 14:00] VITALS: BP 155/78
== END 2021-03-15 14:03 | disposition home or self-care (01) ==
LOC: ER 09:22
DX: M54.2 Cervicalgia (principal); I10 Essential (primary) hypertension; I25.2 Old myocardial infarction; I69.354 Hemiplegia and hemiparesis following cerebral infarction affecting left non-dominant side; Z79.82 Long term (current) use of aspirin
CPT/HCPCS: 36415; 71045; 80053; 83605; 84145; 84484; 85025; 93005; 99285

== ENCOUNTER 2021-03-24 10:14 | Inpatient (IN) | payer BC ==
[~2021-03-24] VITALS: Ht 188 cm; Wt 124.8 kg
[~2021-03-24 10:14] MED LIST changes: +TOPUD PO
[2021-03-24] MEDS ORDERED: SODIUM CHLORIDE 0.9% 1,000 ML IV ONE (11:00)
[2021-03-24 11:21] LABS: BASOPHILS % 0.5 % (0.0-2.0); EOSINOPHILS % 1.2 % (0.0-5.0); HEMOGLOBIN. 10.2 g/dL (14.0-18.0); LYMPHOCYTES % 12.4 % (20.0-50.0); MEAN CORPUSCULAR HEMOGLOBIN 31.4 pg (28.0-32.0); MEAN CORPUSCULAR VOLUME 95.5 fL (80.0-94.0); MEAN PLATELET VOLUME 8.2 fl (7.4-10.4); MONOCYTES % 4.8 % (2.0-8.0); NEUTROPHILS % 81.1 % (40.0-76.0); PLATELET 218 x1000/uL (130-400); RED BLOOD CELL COUNT 3.25 mill/uL (4.7-6.1); RED CELL DISTRIBUTION WIDTH 16.5 % (11.6-14.6)
[2021-03-24 11:27] LABS: CHLORIDE 107 mEq/L (98-107)
[2021-03-24] MEDS ORDERED: AZITHROMYCIN 500MG/250ML 250 ML IV ONE (12:15)
[2021-03-24] MEDS ORDERED: SODIUM CHLORIDE 0.9% 1000ML BAG (SEPSIS BOLUS) IV ONE (12:15)
[2021-03-24] MEDS ORDERED: CEFTRIAXONE 1 G PREMIX 50 ML IV ONE (12:15)
[2021-03-24] MEDS ORDERED: ASPIRIN 325MG EC TABLET PO ONE (13:00)
[2021-03-24] MEDS ORDERED: CLONIDINE 0.1MG TABLET PO PRN (16:15)
[2021-03-24] MEDS ORDERED: HYDROCODONE/ACETAMINOPHEN 5/325MG TABLET PO PRN (16:15)
[2021-03-24] MEDS ORDERED: ACETAMINOPHEN 325MG TABLET PO PRN (16:15)
[2021-03-24] MEDS ORDERED: MAGNESIUM/ALUMINUM HYDROXIDE/SIMETHICONE 30ML UDC PO PRN (16:15)
[2021-03-24] MEDS ORDERED: ONDANSETRON HCL 4MG/2ML INJ IV PRN (16:15)
[2021-03-24 18:15] VITALS: BP 155/83
[2021-03-24] MEDS: ENOXAPARIN 40MG/0.4ML SYR SUBCUT SCH (19:08)
[2021-03-24 20:00] VITALS: BP_SYST 146; BP_SYST 149; BP_DIAS 63; BP_DIAS 65
[2021-03-24] MEDS ORDERED: NALOXONE HCL 0.4MG/ML VIAL IV PRN (22:30)
[2021-03-25] VITALS: BP 135/73
[2021-03-25 03:32] LABS: CLARITY URINE CLEAR (CLEAR); COLOR URINE YELLOW (YELLOW); KETONES URINE TRACE (NEGATIVE); LEUKOCYTE ESTERASE URINE NEGATIVE (NEGATIVE); NITRITE URINE NEGATIVE (NEGATIVE); OCCULT BLOOD URINE TRACE (NEGATIVE); PH URINE 5.5 (4.5-8.0); PROTEIN URINE 2+ (NEGATIVE); SPECIFIC GRAVITY URINE 1.023 (1.005-1.030)
[2021-03-25 03:50] LABS: *AMPHETAMINES SCREEN URINE NEGATIVE (NEGATIVE); *BARBITURATES SCREEN URINE NEGATIVE (NEGATIVE); *BENZODIAZEPINES SCREEN URINE NEGATIVE (NEGATIVE); *COCAINE SCREEN URINE NEGATIVE (NEGATIVE); METHADONE URINE SCREEN NEGATIVE (NEGATIVE); OPIATES URINE SCREEN NEGATIVE (NEGATIVE)
[2021-03-25 03:51] LABS: CANNABINOID URINE SCREEN NEGATIVE (NEGATIVE); PHENCYCLIDINE URINE SCREEN NEGATIVE (NEGATIVE)
[2021-03-25 04:00] VITALS: BP 110/74
[2021-03-25] MEDS: OMEPRAZOLE 20MG CAPSULE EXTENDED RELEASE PO SCH (06:26)
[2021-03-25 07:15] LABS: BASOPHILS % 0.8 % (0.0-2.0); EOSINOPHILS % 2.1 % (0.0-5.0); HEMATOCRIT. 29.6 % (42.0-52.0); HEMOGLOBIN. 9.8 g/dL (14.0-18.0); LYMPHOCYTES % 19.5 % (20.0-50.0); MEAN CORPUSCULAR VOLUME 93.6 fL (80.0-94.0); MEAN PLATELET VOLUME 8.3 fl (7.4-10.4); MONOCYTES % 6.4 % (2.0-8.0); NEUTROPHILS % 71.2 % (40.0-76.0); PLATELET 225 x1000/uL (130-400); RED BLOOD CELL COUNT 3.16 mill/uL (4.7-6.1); RED CELL DISTRIBUTION WIDTH 15.6 % (11.6-14.6)
[2021-03-25 07:19] LABS: CHLORIDE 110 mEq/L (98-107)
[2021-03-25 07:25] LABS: PHOSPHORUS 2.7 mg/dL (2.5-4.9)
[2021-03-25 08:00] VITALS: BP 133/65
[2021-03-25] MEDS: ASPIRIN 325MG EC TABLET PO SCH (09:33)
[2021-03-25] MEDS: FOLIC ACID 1MG TABLET PO SCH (09:33)
[2021-03-25 12:00] VITALS: BP 149/79
[2021-03-25 16:00] VITALS: BP 120/69
[2021-03-25] MEDS: ENOXAPARIN 40MG/0.4ML SYR SUBCUT SCH (18:52)
[2021-03-25 20:00] VITALS: BP 146/76
[2021-03-26] VITALS: BP 165/77
[2021-03-26 04:00] VITALS: BP 155/75
[2021-03-26] MEDS: OMEPRAZOLE 20MG CAPSULE EXTENDED RELEASE PO SCH (05:56)
[2021-03-26 07:39] LABS: EOSINOPHILS % 3.8 % (0.0-5.0); HEMATOCRIT. 29.4 % (42.0-52.0); HEMOGLOBIN. 9.7 g/dL (14.0-18.0); LYMPHOCYTES % 25.1 % (20.0-50.0); MEAN CORPUSCULAR VOLUME 93.7 fL (80.0-94.0); MEAN PLATELET VOLUME 8.2 fl (7.4-10.4); MONOCYTES % 6.1 % (2.0-8.0); PLATELET 231 x1000/uL (130-400); RED BLOOD CELL COUNT 3.14 mill/uL (4.7-6.1); RED CELL DISTRIBUTION WIDTH 15.9 % (11.6-14.6)
[2021-03-26 08:00] VITALS: BP 154/77
[2021-03-26] MEDS: FOLIC ACID 1MG TABLET PO SCH (08:41)
[2021-03-26] MEDS: ASPIRIN 325MG EC TABLET PO SCH (08:41)
[2021-03-26 12:00] VITALS: BP 156/72
[2021-03-26 16:00] VITALS: BP 162/74
[2021-03-26] MEDS: ENOXAPARIN 40MG/0.4ML SYR SUBCUT SCH (17:39)
[2021-03-26 20:00] VITALS: BP 154/77
[2021-03-27] VITALS: BP 143/71
[2021-03-27 04:00] VITALS: BP 161/83
[2021-03-27] MEDS: FAMOTIDINE 20MG TABLET PO SCH (05:58)
[2021-03-27 08:00] VITALS: BP 157/80
[2021-03-27] MEDS: FOLIC ACID 1MG TABLET PO SCH (09:35)
[2021-03-27] MEDS: DOCUSATE SODIUM 250MG CAPSULE PO SCH (09:35)
[2021-03-27] MEDS: ASPIRIN 325MG EC TABLET PO SCH (09:35)
[2021-03-27 12:00] VITALS: BP 162/82
[2021-03-27] MEDS: ENOXAPARIN 120MG/0.8ML SYR SUBCUT SCH (14:08)
[2021-03-27 16:00] VITALS: BP 157/78
[2021-03-27 20:00] VITALS: BP 156/79
[2021-03-28] VITALS: BP 113/71
[2021-03-28] MEDS: ENOXAPARIN 120MG/0.8ML SYR SUBCUT SCH ×2 (01:42→15:37)
[2021-03-28 04:00] VITALS: BP 169/83
[2021-03-28] MEDS: FAMOTIDINE 20MG TABLET PO SCH (05:59)
[2021-03-28 08:00] VITALS: BP 137/67
[2021-03-28 08:56] LABS: INR 1.1; PROTHROMBIN TIME 11.9 sec (9.6-11.0)
[2021-03-28] MEDS: DOCUSATE SODIUM 250MG CAPSULE PO SCH (09:48)
[2021-03-28] MEDS: FOLIC ACID 1MG TABLET PO SCH (09:48)
[2021-03-28] MEDS ORDERED: APIX5TAB MT (11:17)
[2021-03-28 12:00] VITALS: BP 117/71
[2021-03-28 16:00] VITALS: BP 154/74
[2021-03-28 16:30] VITALS: BP 151/73
== END 2021-03-28 19:52 | disposition home health service (06) | DRG 299 ==
LOC: ER 10:38 → 7WST 12:15 → ENRESERV 15:09 → 7EST 22:26
PROVIDERS: ADMIT Internal Medicine; ATTEND Internal Medicine
DX: I82.412 Acute embolism and thrombosis of left femoral vein (principal); G82.50 Quadriplegia, unspecified; G93.41 Metabolic encephalopathy; N17.9 Acute kidney failure, unspecified; R47.01 Aphasia; M87.9 Osteonecrosis, unspecified; I69.954 Hemiplegia and hemiparesis following unspecified cerebrovascular disease affecting left non-dominant side; G90.8 Other disorders of autonomic nervous system; D53.9 Nutritional anemia, unspecified; E78.00 Pure hypercholesterolemia, unspecified; I11.9 Hypertensive heart disease without heart failure; I65.29 Occlusion and stenosis of unspecified carotid artery; Z20.822 Contact with and (suspected) exposure to COVID-19; I12.9 Hypertensive chronic kidney disease with stage 1 through stage 4 chronic kidney disease, or unspecified chronic kidney disease; N18.9 Chronic kidney disease, unspecified; R47.1 Dysarthria and anarthria; R73.9 Hyperglycemia, unspecified; E55.9 Vitamin D deficiency, unspecified; M48.061 Spinal stenosis, lumbar region without neurogenic claudication; I95.1 Orthostatic hypotension; M16.0 Bilateral primary osteoarthritis of hip; I25.2 Old myocardial infarction; Z82.49 Family history of ischemic heart disease and other diseases of the circulatory system; Z79.1 Long term (current) use of non-steroidal anti-inflammatories (NSAID); Z79.82 Long term (current) use of aspirin; Z79.899 Other long term (current) drug therapy
CPT/HCPCS: 36415; 70551; 71045; 72128; 72131; 73502; 73721; 80048; 80053; 80076; 80305; 81003; 82140; 83735; 83880; 84100; 84484; 85025; 93005; 93970; 97162; 97166; 99285; J0456; J0696; J1650; J7030; U0003; U0005

== ENCOUNTER 2021-04-07 19:53 | Inpatient (IN) | payer BC, MEDICAID ==
[~2021-04-07] VITALS: Ht 193 cm; Wt 119.0 kg
[~2021-04-07 19:53] MED LIST changes: +APIX5TAB MT; -OXYB5TAB16 PO; -THIA100T72 PO
[2021-04-07 22:34] LABS: BASOPHILS % 0.6 % (0.0-2.0); EOSINOPHILS % 0.8 % (0.0-5.0); HEMATOCRIT. 31.4 % (42.0-52.0); LYMPHOCYTES % 15.1 % (20.0-50.0); MEAN CORPUSCULAR HEMOGLOBIN 31.3 pg (28.0-32.0); MEAN CORPUSCULAR VOLUME 98.5 fL (80.0-94.0); MONOCYTES % 5.3 % (2.0-8.0); NEUTROPHILS % 78.2 % (40.0-76.0); PLATELET 289 x1000/uL (130-400); RED BLOOD CELL COUNT 3.18 mill/uL (4.7-6.1); RED CELL DISTRIBUTION WIDTH 16.3 % (11.6-14.6)
[2021-04-07 22:42] LABS: CHLORIDE 110 mEq/L (98-107)
[2021-04-08 00:52] LABS: CLARITY URINE CLEAR (CLEAR); COLOR URINE YELLOW (YELLOW); KETONES URINE NEGATIVE (NEGATIVE); LEUKOCYTE ESTERASE URINE TRACE (NEGATIVE); NITRITE URINE NEGATIVE (NEGATIVE); OCCULT BLOOD URINE NEGATIVE (NEGATIVE); PH URINE 5.5 (4.5-8.0); PROTEIN URINE 1+ (NEGATIVE)
[2021-04-08] MEDS ORDERED: CEFTRIAXONE 1 G PREMIX 50 ML IV SCH (01:00)
[2021-04-08] MEDS ORDERED: HYDROCODONE/ACETAMINOPHEN 5/325MG TABLET PO PRN (08:15)
[2021-04-08] MEDS ORDERED: ENOXAPARIN 40MG/0.4ML SYR SUBCUT SCH (08:15)
[2021-04-08] MEDS ORDERED: ONDANSETRON HCL 4MG/2ML INJ IV PRN (08:15)
[2021-04-08 09:00] VITALS: BP_SYST 157; BP_SYST 162; BP_DIAS 75; BP_DIAS 83
[2021-04-08] MEDS: ENOXAPARIN 40MG/0.4ML SYR SUBCUT SCH (09:30)
[2021-04-08 12:00] VITALS: BP 129/72
[2021-04-08 15:42] VITALS: BP_SYST 145; BP_SYST 148; BP_DIAS 70; BP_DIAS 71
[2021-04-08 20:00] VITALS: BP 148/63
[2021-04-08] MEDS ORDERED: NALOXONE HCL 0.4MG/ML VIAL IV PRN (22:00)
[2021-04-09] VITALS: BP 140/60
[2021-04-09 04:00] VITALS: BP_SYST 118; BP_SYST 148; BP_DIAS 66; BP_DIAS 72
[2021-04-09 06:28] LABS: BASOPHILS % 0.5 % (0.0-2.0); EOSINOPHILS % 3.8 % (0.0-5.0); HEMATOCRIT. 28.2 % (42.0-52.0); HEMOGLOBIN. 9.7 g/dL (14.0-18.0); LYMPHOCYTES % 27.4 % (20.0-50.0); MEAN CORPUSCULAR HEMOGLOBIN 32.3 pg (28.0-32.0); MEAN CORPUSCULAR VOLUME 94.3 fL (80.0-94.0); MONOCYTES % 6.4 % (2.0-8.0); NEUTROPHILS % 61.9 % (40.0-76.0); PLATELET 263 x1000/uL (130-400); RED BLOOD CELL COUNT 2.99 mill/uL (4.7-6.1); RED CELL DISTRIBUTION WIDTH 16.6 % (11.6-14.6)
[2021-04-09 06:35] LABS: CHLORIDE 109 mEq/L (98-107)
[2021-04-09 06:43] LABS: PHOSPHORUS 2.4 mg/dL (2.5-4.9)
[2021-04-09 06:45] LABS: LDL CHOLESTEROL 80 mg/dL (5-100)
[2021-04-09 06:47] LABS: HDL CHOLESTEROL 35 mg/dL (40-59); TOTAL IRON BINDING CAPACITY 214 ug/dL (250-450)
[2021-04-09 06:50] LABS: T4 FREE 0.99 ng/dL (0.76-1.46)
[2021-04-09 07:18] LABS: FERRITIN 126 ng/mL (22-322)
[2021-04-09 07:29] LABS: VITAMIN B12 SERUM 680 pg/mL (211-911)
[2021-04-09 07:39] LABS: FOLIC ACID (FOLATE) SERUM > 20.00 ng/mL (>5.38)
[2021-04-09 08:00] VITALS: BP_SYST 141; BP_SYST 150; BP_DIAS 64; BP_DIAS 78
[2021-04-09] MEDS: ENOXAPARIN 40MG/0.4ML SYR SUBCUT SCH (09:34)
[2021-04-09] MEDS: OMEPRAZOLE 20MG CAPSULE EXTENDED RELEASE PO SCH (09:34)
[2021-04-09 12:00] VITALS: BP_SYST 131; BP_SYST 132; BP_DIAS 67; BP_DIAS 69
[2021-04-09] MEDS ORDERED: IOHEXOL-350 100 ML BOTTLE ONE (14:31)
[2021-04-09 16:00] VITALS: BP 130/82
[2021-04-09] MEDS: FERROUS SULFATE 325MG TABLET PO SCH (17:32)
[2021-04-09 20:00] VITALS: BP_SYST 142; BP_SYST 159; BP_DIAS 73; BP_DIAS 91
[2021-04-10] VITALS: BP_SYST 153; BP_SYST 160; BP_DIAS 79; BP_DIAS 80
[2021-04-10 04:00] VITALS: BP 143/72
[2021-04-10] MEDS: OMEPRAZOLE 20MG CAPSULE EXTENDED RELEASE PO SCH (06:37)
[2021-04-10 06:38] LABS: BASOPHILS % 0.4 % (0.0-2.0); EOSINOPHILS % 3.4 % (0.0-5.0); HEMATOCRIT. 28.9 % (42.0-52.0); HEMOGLOBIN. 9.9 g/dL (14.0-18.0); LYMPHOCYTES % 26.2 % (20.0-50.0); MEAN CORPUSCULAR HEMOGLOBIN 32.1 pg (28.0-32.0); MEAN CORPUSCULAR VOLUME 93.4 fL (80.0-94.0); MEAN PLATELET VOLUME 8.3 fl (7.4-10.4); MONOCYTES % 6.2 % (2.0-8.0); NEUTROPHILS % 63.8 % (40.0-76.0); PLATELET 255 x1000/uL (130-400); RED CELL DISTRIBUTION WIDTH 16.4 % (11.6-14.6)
[2021-04-10 08:00] VITALS: BP_SYST 115; BP_SYST 138; BP_DIAS 62; BP_DIAS 78
[2021-04-10] MEDS: ENOXAPARIN 30MG/0.3ML SYR SUBCUT SCH ×2 (11:02→21:00)
[2021-04-10] MEDS: FERROUS SULFATE 325MG TABLET PO SCH ×3 (11:02→18:20)
[2021-04-10 12:00] VITALS: BP_SYST 111; BP_SYST 144; BP_DIAS 58; BP_DIAS 75
[2021-04-10 16:00] VITALS: BP_SYST 118; BP_SYST 142; BP_DIAS 61; BP_DIAS 76
[2021-04-10] MEDS ORDERED: DEXT 5% IV SCH (17:45)
[2021-04-10] MEDS ORDERED: RIFAMPIN IV SCH (17:45)
[2021-04-10] MEDS ORDERED: WATER IV SCH (17:45)
[2021-04-10] MEDS: SULFAMETHOXAZOLE/TRIMETHOPRIM 800/160MG TABLET PO SCH (18:20)
[2021-04-10 20:00] VITALS: BP_SYST 160; BP_SYST 165; BP_DIAS 77; BP_DIAS 86
[2021-04-10 20:08] LABS: INR 1.1; PARTIAL THROMBOPLASTIN TIME 30.1 sec (23.4-31.0); PROTHROMBIN TIME 11.7 sec (9.6-11.0)
[2021-04-10] MEDS: CLONIDINE 0.1MG TABLET PO PRN (22:11)
[2021-04-11] VITALS (36 sets, daily range): BP systolic 121–167; BP diastolic 47–84
[2021-04-11] MEDS ORDERED: HEPARIN SODIUM 1,000 UNIT/1ML VIAL IV ONE (06:44)
[2021-04-11] MEDS ORDERED: BACITRACIN 15GM TUBE TOP ONE (06:44)
[2021-04-11] MEDS ORDERED: THROMBIN (BOVINE) 5000 UNITS/VIAL TOP ONE ×2 (06:44→06:45)
[2021-04-11] MEDS ORDERED: LIDOCAINE HCL 1% 20ML VIAL (Pyxis) INJ ONE (06:44)
[2021-04-11] MEDS ORDERED: POLYMYXIN B SULFATE 500000 UNITS/VIAL ONE (06:45)
[2021-04-11] MEDS ORDERED: BUPIVACAINE HCL/PF 0.5% (5MG/ML) 10ML ONE (06:45)
[2021-04-11] MEDS: FERROUS SULFATE 325MG TABLET PO SCH ×4 (07:40→18:23)
[2021-04-11] MEDS: FAMOTIDINE 20MG TABLET PO SCH ×2 (08:02→20:47)
[2021-04-11] MEDS: SULFAMETHOXAZOLE/TRIMETHOPRIM 800/160MG TABLET PO SCH ×3 (08:03→18:24)
[2021-04-11] MEDS: ENOXAPARIN 30MG/0.3ML SYR SUBCUT SCH ×2 (08:03→20:48)
[2021-04-11] MEDS ORDERED: PHENYLEPHRINE 50 MG in DEXT 5% WATER 245 ML IV PRN (11:15)
[2021-04-11] MEDS ORDERED: NICARDIPINE 40MG/200ML PREMIX 200 ML IV PRN ×2 (11:15→13:00)
[2021-04-11] MEDS ORDERED: FENTANYL CITRATE/PF 50MCG/ML 2ML VIAL ONE (12:44)
[2021-04-11] MEDS ORDERED: ROCURONIUM BROMIDE 10MG/ML VIAL 5ML IV ONE (12:44)
[2021-04-11] MEDS ORDERED: PROPOFOL 200MG/20ML VIAL IV ONE (12:44)
[2021-04-11] MEDS ORDERED: ONDANSETRON HCL 4MG/2ML INJ ONE (12:48)
[2021-04-11] MEDS ORDERED: MORPHINE SULFATE 4 MG/ML CPJ (NOT FOR IM USE) IV PRN (13:00)
[2021-04-11] MEDS ORDERED: CEFAZOLIN SODIUM 1000MG/VIAL ONE (13:52)
[2021-04-11] MEDS ORDERED: PROTAMINE SULFATE 10MG/ML VIAL 5ML IV ONE (14:50)
[2021-04-11] MEDS ORDERED: NEOSTIGMINE METHYLSULFATE 1MG/ML 10 ML VIAL ONE (14:58)
[2021-04-11] MEDS ORDERED: GLYCOPYRROLATE 0.2 MG/ML 2ML VIAL ONE (14:58)
[2021-04-11] MEDS ORDERED: HEPARIN 1000 UNITS/ML 10ML ONE (14:59)
[2021-04-11] MEDS: NICARDIPINE 50 MG in SODIUM CHLORIDE 0.9% 250 ML IV PRN (21:01)
[2021-04-11] MEDS: MORPHINE SULFATE 2 MG/ML CPJ (NOT FOR IM USE) IV PRN (23:40)
[2021-04-12] VITALS (81 sets, daily range): BP systolic 103–175; BP diastolic 45–99
[2021-04-12] MEDS: NICARDIPINE 50 MG in SODIUM CHLORIDE 0.9% 250 ML IV PRN (03:46)
[2021-04-12] MEDS: MORPHINE SULFATE 2 MG/ML CPJ (NOT FOR IM USE) IV PRN (04:58)
[2021-04-12 06:25] LABS: BASOPHILS % 0.8 % (0.0-2.0); EOSINOPHILS % 2.5 % (0.0-5.0); HEMOGLOBIN. 8.2 g/dL (14.0-18.0); MEAN CORPUSCULAR HEMOGLOBIN 32.1 pg (28.0-32.0); MEAN CORPUSCULAR VOLUME 93.9 fL (80.0-94.0); MEAN PLATELET VOLUME 8.4 fl (7.4-10.4); MONOCYTES % 7.1 % (2.0-8.0); NEUTROPHILS % 67.6 % (40.0-76.0); PLATELET 207 x1000/uL (130-400); RED BLOOD CELL COUNT 2.56 mill/uL (4.7-6.1); RED CELL DISTRIBUTION WIDTH 16.2 % (11.6-14.6)
[2021-04-12] MEDS: SULFAMETHOXAZOLE/TRIMETHOPRIM 800/160MG TABLET PO SCH ×2 (08:42→17:41)
[2021-04-12] MEDS: ENOXAPARIN 30MG/0.3ML SYR SUBCUT SCH (08:42)
[2021-04-12] MEDS: FAMOTIDINE 20MG TABLET PO SCH ×2 (08:42→20:37)
[2021-04-12] MEDS: FERROUS SULFATE 325MG TABLET PO SCH ×3 (08:42→17:41)
[2021-04-12] MEDS: AMLODIPINE 10MG TABLET PO SCH (12:25)
[2021-04-13] VITALS (86 sets, daily range): BP systolic 77–186; BP diastolic 39–137
[2021-04-13 06:20] LABS: BASOPHILS % 0.8 % (0.0-2.0); EOSINOPHILS % 3.9 % (0.0-5.0); HEMATOCRIT. 26.3 % (42.0-52.0); LYMPHOCYTES % 22.1 % (20.0-50.0); MEAN CORPUSCULAR VOLUME 93.5 fL (80.0-94.0); MEAN PLATELET VOLUME 8.5 fl (7.4-10.4); MONOCYTES % 8.6 % (2.0-8.0); NEUTROPHILS % 64.6 % (40.0-76.0); PLATELET 176 x1000/uL (130-400); RED BLOOD CELL COUNT 2.81 mill/uL (4.7-6.1); RED CELL DISTRIBUTION WIDTH 16.2 % (11.6-14.6)
[2021-04-13] MEDS: SULFAMETHOXAZOLE/TRIMETHOPRIM 800/160MG TABLET PO SCH ×2 (08:43→17:00)
[2021-04-13] MEDS: FAMOTIDINE 20MG TABLET PO SCH ×2 (08:43→20:58)
[2021-04-13] MEDS: FERROUS SULFATE 325MG TABLET PO SCH ×3 (08:43→18:51)
[2021-04-13] MEDS: AMLODIPINE 10MG TABLET PO SCH (08:44)
[2021-04-13] MEDS ORDERED: CLOPIDOGREL 75MG TABLET PO SCH (09:00)
[2021-04-13] MEDS: ACETAMINOPHEN 325MG TABLET PO PRN (09:53)
[2021-04-13] MEDS: HYDROCODONE/ACETAMINOPHEN 5/325MG TABLET PO PRN (11:46)
[2021-04-13] MEDS: CLONIDINE 0.1MG TABLET PO PRN (11:47)
[2021-04-13] MEDS: HYDRALAZINE HCL 25MG TABLET PO SCH ×2 (14:38→21:00)
[2021-04-14] VITALS (58 sets, daily range): BP systolic 89–166; BP diastolic 39–113
[2021-04-14] MEDS: HYDRALAZINE HCL 25MG TABLET PO SCH ×3 (05:01→16:01)
[2021-04-14 05:51] LABS: BASOPHILS % 0.8 % (0.0-2.0); EOSINOPHILS % 3.6 % (0.0-5.0); HEMATOCRIT. 26.6 % (42.0-52.0); MEAN CORPUSCULAR HEMOGLOBIN 31.6 pg (28.0-32.0); MEAN CORPUSCULAR VOLUME 93.7 fL (80.0-94.0); MONOCYTES % 7.5 % (2.0-8.0); NEUTROPHILS % 63.1 % (40.0-76.0); PLATELET 181 x1000/uL (130-400); RED BLOOD CELL COUNT 2.84 mill/uL (4.7-6.1); RED CELL DISTRIBUTION WIDTH 16.3 % (11.6-14.6)
[2021-04-14] MEDS: ENOXAPARIN 30MG/0.3ML SYR SUBCUT SCH ×2 (08:30→21:59)
[2021-04-14] MEDS: AMLODIPINE 10MG TABLET PO SCH (08:31)
[2021-04-14] MEDS: FERROUS SULFATE 325MG TABLET PO SCH ×3 (08:31→16:01)
[2021-04-14] MEDS: SULFAMETHOXAZOLE/TRIMETHOPRIM 800/160MG TABLET PO SCH ×2 (08:31→18:53)
[2021-04-14] MEDS: FAMOTIDINE 20MG TABLET PO SCH ×2 (08:31→21:58)
[2021-04-14] MEDS: DOCUSATE SODIUM 100MG CAPSULE PO PRN ×2 (08:32→18:53)
[2021-04-14] MEDS ORDERED: CLOPIDOGREL 75MG TABLET PO SCH (09:00)
[2021-04-14] MEDS ORDERED: ENOXAPARIN 30MG/0.3ML SYR SUBCUT SCH (09:00)
[2021-04-14] MEDS ORDERED: LACTULOSE 20G/30ML UDC PO SCH (09:00)
[2021-04-14] MEDS: ACETAMINOPHEN 325MG TABLET PO PRN (09:03)
[2021-04-15] VITALS: BP 124/69
[2021-04-15 04:00] VITALS: BP 126/67
[2021-04-15] MEDS: HYDRALAZINE HCL 25MG TABLET PO SCH ×3 (06:59→22:06)
[2021-04-15 08:00] VITALS: BP 143/71
[2021-04-15] MEDS: AMLODIPINE 10MG TABLET PO SCH (09:36)
[2021-04-15] MEDS: FERROUS SULFATE 325MG TABLET PO SCH ×3 (09:37→17:12)
[2021-04-15] MEDS: FAMOTIDINE 20MG TABLET PO SCH ×2 (09:37→22:05)
[2021-04-15] MEDS: SULFAMETHOXAZOLE/TRIMETHOPRIM 800/160MG TABLET PO SCH ×2 (09:38→17:17)
[2021-04-15] MEDS: ENOXAPARIN 30MG/0.3ML SYR SUBCUT SCH (09:39)
[2021-04-15] MEDS ORDERED: LACTULOSE 20G/30ML UDC PO NR (10:15)
[2021-04-15] MEDS ORDERED: BISACODYL 10MG SUPP PR NR (10:15)
[2021-04-15 12:00] VITALS: BP 119/69
[2021-04-15] MEDS ORDERED: BISACODYL 5MG TABLET PO PRN (13:45)
[2021-04-15] MEDS ORDERED: LACTULOSE 20G/30ML UDC PO PRN (13:45)
[2021-04-15] MEDS: CLOPIDOGREL 75MG TABLET PO SCH (15:43)
[2021-04-15 16:00] VITALS: BP 136/73
[2021-04-15] MEDS: DOCUSATE SODIUM 100MG CAPSULE PO SCH (17:20)
[2021-04-15 20:00] VITALS: BP 130/65
[2021-04-15 21:40] LABS: BASOPHILS % 1.1 % (0.0-2.0); EOSINOPHILS % 2.8 % (0.0-5.0); HEMATOCRIT. 26.3 % (42.0-52.0); HEMOGLOBIN. 8.7 g/dL (14.0-18.0); LYMPHOCYTES % 24.7 % (20.0-50.0); MEAN CORPUSCULAR HEMOGLOBIN 30.9 pg (28.0-32.0); MEAN CORPUSCULAR VOLUME 93.7 fL (80.0-94.0); MEAN PLATELET VOLUME 8.1 fl (7.4-10.4); NEUTROPHILS % 63.4 % (40.0-76.0); PLATELET 186 x1000/uL (130-400); RED BLOOD CELL COUNT 2.81 mill/uL (4.7-6.1)
[2021-04-15 21:46] LABS: INR 1.1; PROTHROMBIN TIME 11.3 sec (9.6-11.0)
[2021-04-15 21:54] LABS: CHLORIDE 105 mEq/L (98-107)
[2021-04-15] MEDS: ENOXAPARIN 120MG/0.8ML SYR SUBCUT SCH (22:05)
[2021-04-16] VITALS: BP_SYST 133; BP_SYST 156; BP_DIAS 69; BP_DIAS 97
[2021-04-16 04:00] VITALS: BP 114/64
[2021-04-16] MEDS: HYDRALAZINE HCL 25MG TABLET PO SCH ×3 (06:51→21:08)
[2021-04-16 08:00] VITALS: BP 129/68
[2021-04-16] MEDS: FERROUS SULFATE 325MG TABLET PO SCH ×3 (08:29→17:26)
[2021-04-16] MEDS: CLOPIDOGREL 75MG TABLET PO SCH (08:29)
[2021-04-16] MEDS: AMLODIPINE 10MG TABLET PO SCH (08:30)
[2021-04-16] MEDS: ACETAMINOPHEN 325MG TABLET PO PRN (08:30)
[2021-04-16] MEDS: FAMOTIDINE 20MG TABLET PO SCH ×2 (08:31→21:08)
[2021-04-16] MEDS: DOCUSATE SODIUM 100MG CAPSULE PO SCH ×2 (08:31→16:48)
[2021-04-16] MEDS: ENOXAPARIN 120MG/0.8ML SYR SUBCUT SCH ×2 (11:06→21:08)
[2021-04-16 12:00] VITALS: BP 116/55
[2021-04-16] MEDS: ASPIRIN 81MG TABLET PO SCH (14:41)
[2021-04-16 16:00] VITALS: BP 124/62
[2021-04-16 20:00] VITALS: BP 123/62
[2021-04-16] MEDS: HYDROCODONE/ACETAMINOPHEN 5/325MG TABLET PO PRN (21:07)
[2021-04-17] VITALS: BP 150/71
[2021-04-17 04:00] VITALS: BP 145/78
[2021-04-17] MEDS: HYDROCODONE/ACETAMINOPHEN 5/325MG TABLET PO PRN ×2 (04:05→22:08)
[2021-04-17] MEDS: HYDRALAZINE HCL 25MG TABLET PO SCH ×3 (05:43→21:58)
[2021-04-17 08:00] VITALS: BP 119/71
[2021-04-17] MEDS: FAMOTIDINE 20MG TABLET PO SCH ×2 (08:58→21:58)
[2021-04-17] MEDS: ASPIRIN 81MG TABLET PO SCH (08:58)
[2021-04-17] MEDS: FERROUS SULFATE 325MG TABLET PO SCH ×3 (08:58→17:33)
[2021-04-17] MEDS: DOCUSATE SODIUM 100MG CAPSULE PO SCH ×2 (08:58→17:33)
[2021-04-17] MEDS: ENOXAPARIN 120MG/0.8ML SYR SUBCUT SCH ×2 (08:59→21:58)
[2021-04-17] MEDS: AMLODIPINE 10MG TABLET PO SCH (08:59)
[2021-04-17 12:00] VITALS: BP 135/70
[2021-04-17] MEDS: ACETAMINOPHEN 325MG TABLET PO PRN (14:46)
[2021-04-17 16:00] VITALS: BP 127/70
[2021-04-17 20:00] VITALS: BP 149/69
[2021-04-18] VITALS: BP 150/71
[2021-04-18] MEDS: HYDROCODONE/ACETAMINOPHEN 5/325MG TABLET PO PRN ×3 (02:33→18:55)
[2021-04-18 04:00] VITALS: BP 138/67
[2021-04-18] MEDS: ACETAMINOPHEN 325MG TABLET PO PRN ×2 (04:04→12:22)
[2021-04-18] MEDS: HYDRALAZINE HCL 25MG TABLET PO SCH ×3 (06:10→22:34)
[2021-04-18 08:00] VITALS: BP 138/73
[2021-04-18] MEDS: FAMOTIDINE 20MG TABLET PO SCH ×2 (08:50→22:35)
[2021-04-18] MEDS: AMLODIPINE 10MG TABLET PO SCH (08:50)
[2021-04-18] MEDS: ASPIRIN 81MG TABLET PO SCH (08:50)
[2021-04-18] MEDS: FERROUS SULFATE 325MG TABLET PO SCH ×3 (08:50→17:43)
[2021-04-18] MEDS: DOCUSATE SODIUM 100MG CAPSULE PO SCH ×2 (08:50→17:43)
[2021-04-18] MEDS: ENOXAPARIN 120MG/0.8ML SYR SUBCUT SCH ×2 (08:51→22:35)
[2021-04-18 12:00] VITALS: BP 140/72
[2021-04-18 16:00] VITALS: BP 128/71
[2021-04-18 20:00] VITALS: BP 135/70
[2021-04-19] VITALS: BP 118/69
[2021-04-19 04:00] VITALS: BP 143/64
[2021-04-19] MEDS: HYDRALAZINE HCL 25MG TABLET PO SCH ×3 (06:11→21:15)
[2021-04-19] MEDS: HYDROCODONE/ACETAMINOPHEN 5/325MG TABLET PO PRN ×2 (06:11→19:02)
[2021-04-19 08:00] VITALS: BP 124/71
[2021-04-19] MEDS: DOCUSATE SODIUM 100MG CAPSULE PO SCH ×2 (09:14→17:00)
[2021-04-19] MEDS: FAMOTIDINE 20MG TABLET PO SCH ×2 (09:14→21:14)
[2021-04-19] MEDS: ASPIRIN 81MG TABLET PO SCH (09:14)
[2021-04-19] MEDS: FERROUS SULFATE 325MG TABLET PO SCH ×3 (09:14→17:50)
[2021-04-19] MEDS: AMLODIPINE 10MG TABLET PO SCH (09:16)
[2021-04-19] MEDS: ENOXAPARIN 120MG/0.8ML SYR SUBCUT SCH ×2 (09:16→21:15)
[2021-04-19 12:00] VITALS: BP 106/53
[2021-04-19] MEDS: METHYLPREDNISOLONE SOD SUCC 40 MG/ML VIAL IV SCH ×2 (12:11→21:14)
[2021-04-19] MEDS: ACETAMINOPHEN 325MG TABLET PO PRN ×2 (14:55→21:16)
[2021-04-19 16:00] VITALS: BP 128/66
[2021-04-19 20:00] VITALS: BP 105/53
[2021-04-20] VITALS: BP 155/86
[2021-04-20 00:08] LABS: BASOPHILS % 0.3 % (0.0-2.0); HEMATOCRIT. 24.9 % (42.0-52.0); HEMOGLOBIN. 8.4 g/dL (14.0-18.0); LYMPHOCYTES % 11.5 % (20.0-50.0); MEAN CORPUSCULAR HEMOGLOBIN 31.4 pg (28.0-32.0); MEAN CORPUSCULAR VOLUME 92.8 fL (80.0-94.0); MONOCYTES % 1.7 % (2.0-8.0); NEUTROPHILS % 86.5 % (40.0-76.0); PLATELET 283 x1000/uL (130-400); RED BLOOD CELL COUNT 2.68 mill/uL (4.7-6.1); RED CELL DISTRIBUTION WIDTH 16.6 % (11.6-14.6)
[2021-04-20] MEDS: HYDROCODONE/ACETAMINOPHEN 5/325MG TABLET PO PRN ×3 (02:02→14:34)
[2021-04-20 04:00] VITALS: BP 153/86
[2021-04-20] MEDS: METHYLPREDNISOLONE SOD SUCC 40 MG/ML VIAL IV SCH ×2 (06:49→14:36)
[2021-04-20] MEDS: HYDRALAZINE HCL 25MG TABLET PO SCH ×3 (06:50→21:38)
[2021-04-20 08:00] VITALS: BP 151/80
[2021-04-20] MEDS: ASPIRIN 81MG TABLET PO SCH (09:37)
[2021-04-20] MEDS: DOCUSATE SODIUM 100MG CAPSULE PO SCH ×2 (09:37→17:19)
[2021-04-20] MEDS: FAMOTIDINE 20MG TABLET PO SCH ×2 (09:37→21:37)
[2021-04-20] MEDS: FERROUS SULFATE 325MG TABLET PO SCH ×3 (09:37→17:19)
[2021-04-20] MEDS: ENOXAPARIN 120MG/0.8ML SYR SUBCUT SCH ×2 (09:38→21:45)
[2021-04-20] MEDS: AMLODIPINE 10MG TABLET PO SCH (09:38)
[2021-04-20 12:00] VITALS: BP 160/88
[2021-04-20 16:00] VITALS: BP 146/74
[2021-04-20 20:00] VITALS: BP_SYST 133; BP_SYST 134; BP_DIAS 75; BP_DIAS 76
[2021-04-21] VITALS: BP 123/68
[2021-04-21 04:00] VITALS: BP 135/69
[2021-04-21] MEDS: HYDRALAZINE HCL 25MG TABLET PO SCH ×2 (06:07→13:10)
[2021-04-21 08:00] VITALS: BP 143/44
[2021-04-21] MEDS: DOCUSATE SODIUM 100MG CAPSULE PO SCH ×2 (09:35→16:38)
[2021-04-21] MEDS: AMLODIPINE 10MG TABLET PO SCH (09:36)
[2021-04-21] MEDS: FAMOTIDINE 20MG TABLET PO SCH ×2 (09:37→20:50)
[2021-04-21] MEDS: HYDROCODONE/ACETAMINOPHEN 5/325MG TABLET PO PRN (09:37)
[2021-04-21] MEDS: FERROUS SULFATE 325MG TABLET PO SCH ×3 (09:37→16:38)
[2021-04-21] MEDS: ENOXAPARIN 120MG/0.8ML SYR SUBCUT SCH ×2 (09:38→20:50)
[2021-04-21 12:00] VITALS: BP 125/77
[2021-04-21 16:00] VITALS: BP 113/64
[2021-04-21 19:10] LABS: HEMATOCRIT 25.2 % (42.0-52.0); HEMOGLOBIN 8.2 g/dL (14.0-18.0)
[2021-04-21 20:00] VITALS: BP 129/70
[2021-04-22] VITALS: BP 155/78
[2021-04-22 04:00] VITALS: BP 153/73
[2021-04-22 08:00] VITALS: BP 138/61
[2021-04-22] MEDS: FAMOTIDINE 20MG TABLET PO SCH (08:37)
[2021-04-22] MEDS: DOCUSATE SODIUM 100MG CAPSULE PO SCH ×2 (08:37→17:19)
[2021-04-22] MEDS: FERROUS SULFATE 325MG TABLET PO SCH ×3 (08:38→17:19)
[2021-04-22] MEDS: ENOXAPARIN 120MG/0.8ML SYR SUBCUT SCH ×2 (08:39→21:23)
[2021-04-22] MEDS: AMLODIPINE 10MG TABLET PO SCH (08:42)
[2021-04-22] MEDS ORDERED: ASPIRIN 81MG TABLET PO SCH (09:00)
[2021-04-22] MEDS: FLUDROCORTISONE ACETATE 0.1MG TABLET PO SCH (09:00)
[2021-04-22] MEDS: DEXT 5%/0.45% NACL 1000ML 1,000 ML IV SCH ×2 (11:24→23:49)
[2021-04-22 12:00] VITALS: BP 108/66
[2021-04-22 16:00] VITALS: BP 136/71
[2021-04-22 20:00] VITALS: BP 121/61
[2021-04-23] VITALS (9 sets, daily range): BP systolic 110–158; BP diastolic 58–77
[2021-04-23 07:21] LABS: BASOPHILS % 0.5 % (0.0-2.0); EOSINOPHILS % 2.8 % (0.0-5.0); LYMPHOCYTES % 25.9 % (20.0-50.0); MEAN CORPUSCULAR HEMOGLOBIN 31.9 pg (28.0-32.0); MEAN CORPUSCULAR VOLUME 94.7 fL (80.0-94.0); MONOCYTES % 7.4 % (2.0-8.0); NEUTROPHILS % 63.4 % (40.0-76.0); PLATELET 304 x1000/uL (130-400); RED BLOOD CELL COUNT 2.14 mill/uL (4.7-6.1); RED CELL DISTRIBUTION WIDTH 17.1 % (11.6-14.6)
[2021-04-23] MEDS: FERROUS SULFATE 325MG TABLET PO SCH ×2 (07:50→13:26)
[2021-04-23 07:55] LABS: HEMATOCRIT. 20.2 % (42.0-52.0); HEMOGLOBIN. 6.8 g/dL (14.0-18.0)
[2021-04-23] MEDS: DOCUSATE SODIUM 100MG CAPSULE PO SCH (08:58)
[2021-04-23] MEDS: FLUDROCORTISONE ACETATE 0.1MG TABLET PO SCH (08:58)
[2021-04-23] MEDS: AMLODIPINE 10MG TABLET PO SCH (08:59)
[2021-04-23] MEDS: FAMOTIDINE 20MG TABLET PO SCH (08:59)
[2021-04-23] MEDS: ENOXAPARIN 120MG/0.8ML SYR SUBCUT SCH (10:55)
[2021-04-23] MEDS: DEXT 5%/0.45% NACL 1000ML 1,000 ML IV SCH (13:26)
[2021-04-23] MEDS: DIVALPROEX SODIUM 250MG DR TABLET PO SCH (21:00)
[2021-04-23 22:01] LABS: HEMATOCRIT 23.2 % (42.0-52.0); HEMOGLOBIN 7.9 g/dL (14.0-18.0)
[2021-04-24] VITALS (20 sets, daily range): BP systolic 77–178; BP diastolic 49–90
[2021-04-24] MEDS: DEXT 5%/0.45% NACL 1000ML 1,000 ML IV SCH ×2 (02:10→17:16)
[2021-04-24] MEDS: DIVALPROEX SODIUM 250MG DR TABLET PO SCH ×3 (05:40→21:59)
[2021-04-24 07:31] LABS: BASOPHILS % 0.3 % (0.0-2.0); EOSINOPHILS % 3.5 % (0.0-5.0); HEMATOCRIT. 23.5 % (42.0-52.0); HEMOGLOBIN. 7.9 g/dL (14.0-18.0); LYMPHOCYTES % 25.2 % (20.0-50.0); MEAN CORPUSCULAR HEMOGLOBIN 31.9 pg (28.0-32.0); MEAN CORPUSCULAR VOLUME 95.1 fL (80.0-94.0); MEAN PLATELET VOLUME 7.7 fl (7.4-10.4); MONOCYTES % 6.9 % (2.0-8.0); NEUTROPHILS % 64.1 % (40.0-76.0); PLATELET 302 x1000/uL (130-400); RED BLOOD CELL COUNT 2.47 mill/uL (4.7-6.1); RED CELL DISTRIBUTION WIDTH 16.2 % (11.6-14.6)
[2021-04-24] MEDS: FERROUS SULFATE 325MG TABLET PO SCH ×3 (07:50→17:15)
[2021-04-24] MEDS: DOCUSATE SODIUM 100MG CAPSULE PO SCH ×2 (09:00→17:19)
[2021-04-24] MEDS: FLUDROCORTISONE ACETATE 0.1MG TABLET PO SCH (09:00)
[2021-04-24] MEDS: FAMOTIDINE 20MG TABLET PO SCH (09:00)
[2021-04-24] MEDS ORDERED: HYDROCODONE/ACETAMINOPHEN 5/325MG TABLET PO PRN (10:00)
[2021-04-24] MEDS ORDERED: CEFAZOLIN 1000MG PREMIX 50 ML IV ONE ×2 (10:00→10:05)
[2021-04-24] MEDS ORDERED: LIDOCAINE HCL 1% 20ML VIAL (Pyxis) INJ ONE (10:06)
[2021-04-24] MEDS ORDERED: IOHEXOL-300 100 ML BOTTLE ONE (10:06)
[2021-04-24] MEDS ORDERED: DIVALPROEX SODIUM 250MG DR TABLET PO NR (16:00)
[2021-04-24] MEDS: ACETAMINOPHEN 325MG TABLET PO PRN (20:36)
[2021-04-25] VITALS (14 sets, daily range): BP systolic 112–180; BP diastolic 59–99
[2021-04-25] MEDS: DEXT 5%/0.45% NACL 1000ML 1,000 ML IV SCH ×2 (05:10→18:12)
[2021-04-25] MEDS: DIVALPROEX SODIUM 250MG DR TABLET PO SCH ×3 (06:09→22:52)
[2021-04-25] MEDS: FERROUS SULFATE 325MG TABLET PO SCH ×3 (08:52→16:56)
[2021-04-25] MEDS: FAMOTIDINE 20MG TABLET PO SCH ×2 (08:52→20:34)
[2021-04-25] MEDS: DOCUSATE SODIUM 100MG CAPSULE PO SCH ×2 (08:52→16:50)
[2021-04-25] MEDS: FLUDROCORTISONE ACETATE 0.1MG TABLET PO SCH (10:18)
[2021-04-25 12:54] LABS: BASOPHILS % 0.3 % (0.0-2.0); EOSINOPHILS % 2.3 % (0.0-5.0); HEMATOCRIT. 23.2 % (42.0-52.0); HEMOGLOBIN. 7.7 g/dL (14.0-18.0); LYMPHOCYTES % 19.1 % (20.0-50.0); MEAN CORPUSCULAR VOLUME 96.6 fL (80.0-94.0); MEAN PLATELET VOLUME 7.4 fl (7.4-10.4); MONOCYTES % 6.2 % (2.0-8.0); NEUTROPHILS % 72.1 % (40.0-76.0); PLATELET 298 x1000/uL (130-400); RED CELL DISTRIBUTION WIDTH 16.7 % (11.6-14.6)
[2021-04-26] VITALS (19 sets, daily range): BP systolic 125–170; BP diastolic 36–98
[2021-04-26] MEDS: DIVALPROEX SODIUM 250MG DR TABLET PO SCH ×3 (06:18→22:25)
[2021-04-26] MEDS: FLUDROCORTISONE ACETATE 0.1MG TABLET PO SCH (07:54)
[2021-04-26] MEDS: FERROUS SULFATE 325MG TABLET PO SCH ×3 (07:54→17:57)
[2021-04-26] MEDS: FAMOTIDINE 20MG TABLET PO SCH ×2 (07:54→22:25)
[2021-04-26] MEDS: DOCUSATE SODIUM 100MG CAPSULE PO SCH ×2 (07:54→17:57)
[2021-04-26] MEDS: DEXT 5%/0.45% NACL 1000ML 1,000 ML IV SCH (10:59)
[2021-04-26] MEDS ORDERED: LIDOCAINE HCL 1% 20ML VIAL (Pyxis) INJ ONE (11:15)
[2021-04-26] MEDS ORDERED: IOHEXOL-350 100 ML BOTTLE ONE (12:44)
[2021-04-27] VITALS (12 sets, daily range): BP systolic 122–178; BP diastolic 67–94
[2021-04-27] MEDS: DEXT 5%/0.45% NACL 1000ML 1,000 ML IV SCH (05:38)
[2021-04-27] MEDS: DIVALPROEX SODIUM 250MG DR TABLET PO SCH ×3 (05:56→21:11)
[2021-04-27] MEDS: FAMOTIDINE 20MG TABLET PO SCH ×2 (08:38→20:41)
[2021-04-27] MEDS: FLUDROCORTISONE ACETATE 0.1MG TABLET PO SCH (08:38)
[2021-04-27] MEDS: DOCUSATE SODIUM 100MG CAPSULE PO SCH ×2 (08:39→17:41)
[2021-04-27] MEDS: FERROUS SULFATE 325MG TABLET PO SCH ×3 (08:39→17:42)
[2021-04-27 13:32] LABS: HEMATOCRIT 23.1 % (42.0-52.0)
[2021-04-27] MEDS: MAGNESIUM/ALUMINUM HYDROXIDE/SIMETHICONE 30ML UDC PO PRN (20:41)
[2021-04-28] VITALS (12 sets, daily range): BP systolic 124–167; BP diastolic 66–89
[2021-04-28] MEDS: CLONIDINE 0.1MG TABLET PO PRN (02:20)
[2021-04-28] MEDS: FERROUS SULFATE 325MG TABLET PO SCH ×3 (06:37→17:48)
[2021-04-28] MEDS: DIVALPROEX SODIUM 250MG DR TABLET PO SCH ×3 (06:37→21:38)
[2021-04-28] MEDS: FAMOTIDINE 20MG TABLET PO SCH ×2 (08:48→21:38)
[2021-04-28] MEDS: DOCUSATE SODIUM 100MG CAPSULE PO SCH ×2 (08:48→17:48)
[2021-04-28] MEDS: FLUDROCORTISONE ACETATE 0.1MG TABLET PO SCH (08:48)
[2021-04-28] MEDS ORDERED: NA PHOS,M-B/NA PHOS,DI-BA ENEMA 118ML PR NR (12:15)
[2021-04-28] MEDS: TAMSULOSIN HCL 0.4MG SR CAPSULE PO SCH (12:44)
[2021-04-29] VITALS (12 sets, daily range): BP systolic 129–164; BP diastolic 64–89
[2021-04-29] MEDS: DIVALPROEX SODIUM 250MG DR TABLET PO SCH ×3 (06:41→21:22)
[2021-04-29] MEDS: FERROUS SULFATE 325MG TABLET PO SCH ×3 (06:41→16:21)
[2021-04-29] MEDS: DOCUSATE SODIUM 100MG CAPSULE PO SCH ×2 (08:27→16:21)
[2021-04-29] MEDS: FLUDROCORTISONE ACETATE 0.1MG TABLET PO SCH (08:27)
[2021-04-29] MEDS: POLYETHYLENE GLYCOL 3350 (17GM) 1 DOSE PACK PO SCH (08:27)
[2021-04-29] MEDS: TAMSULOSIN HCL 0.4MG SR CAPSULE PO SCH (08:28)
[2021-04-29] MEDS: FAMOTIDINE 20MG TABLET PO SCH ×2 (08:28→21:22)
[2021-04-30] VITALS (11 sets, daily range): BP systolic 107–156; BP diastolic 58–100
[2021-04-30] MEDS: CLONIDINE 0.1MG TABLET PO PRN (00:07)
[2021-04-30] MEDS: DIVALPROEX SODIUM 250MG DR TABLET PO SCH ×3 (05:32→21:23)
[2021-04-30 06:22] LABS: HEMATOCRIT 22.1 % (42.0-52.0); HEMOGLOBIN 7.4 g/dL (14.0-18.0); MEAN CORPUSCULAR HEMOGLOBIN 32.2 pg (28.0-32.0); MEAN CORPUSCULAR VOLUME 96.4 fL (80.0-94.0); PLATELET 181 x1000/uL (130-400); RED CELL DISTRIBUTION WIDTH 17.4 % (11.6-14.6)
[2021-04-30] MEDS: FAMOTIDINE 20MG TABLET PO SCH ×2 (08:53→21:23)
[2021-04-30] MEDS: ACETAMINOPHEN 325MG TABLET PO PRN (08:54)
[2021-04-30] MEDS: DOCUSATE SODIUM 100MG CAPSULE PO SCH ×2 (08:54→17:46)
[2021-04-30] MEDS: FLUDROCORTISONE ACETATE 0.1MG TABLET PO SCH (08:54)
[2021-04-30] MEDS: POLYETHYLENE GLYCOL 3350 (17GM) 1 DOSE PACK PO SCH (08:54)
[2021-04-30] MEDS: TAMSULOSIN HCL 0.4MG SR CAPSULE PO SCH (08:54)
[2021-04-30] MEDS: FERROUS SULFATE 325MG TABLET PO SCH ×3 (08:54→17:46)
[2021-04-30] MEDS ORDERED: NA PHOS,M-B/NA PHOS,DI-BA ENEMA 118ML PR PRN (19:15)
[2021-05-01] VITALS (11 sets, daily range): BP systolic 116–160; BP diastolic 62–98
[2021-05-01] MEDS: DIVALPROEX SODIUM 250MG DR TABLET PO SCH ×3 (05:13→21:14)
[2021-05-01 06:30] LABS: HEMATOCRIT 22.5 % (42.0-52.0); HEMOGLOBIN 7.7 g/dL (14.0-18.0)
[2021-05-01] MEDS: TAMSULOSIN HCL 0.4MG SR CAPSULE PO SCH (09:10)
[2021-05-01] MEDS: DOCUSATE SODIUM 100MG CAPSULE PO SCH ×2 (09:10→17:37)
[2021-05-01] MEDS: FERROUS SULFATE 325MG TABLET PO SCH ×3 (09:10→17:37)
[2021-05-01] MEDS: FLUDROCORTISONE ACETATE 0.1MG TABLET PO SCH (09:11)
[2021-05-01] MEDS: POLYETHYLENE GLYCOL 3350 (17GM) 1 DOSE PACK PO SCH (09:11)
[2021-05-01] MEDS: ACETAMINOPHEN 325MG TABLET PO PRN (09:11)
[2021-05-01] MEDS: FAMOTIDINE 20MG TABLET PO SCH ×2 (09:12→21:14)
[2021-05-01] MEDS: CLONIDINE 0.1MG TABLET PO PRN (13:18)
[2021-05-01] MEDS: MAGNESIUM/ALUMINUM HYDROXIDE/SIMETHICONE 30ML UDC PO PRN (13:18)
[2021-05-02] VITALS: BP 103/58
[2021-05-02 02:00] VITALS: BP 105/60
[2021-05-02 04:00] VITALS: BP 125/68
[2021-05-02 06:00] VITALS: BP 134/60
[2021-05-02] MEDS: DIVALPROEX SODIUM 250MG DR TABLET PO SCH (06:25)
[2021-05-02 08:00] VITALS: BP 151/72
[2021-05-02] MEDS: FLUDROCORTISONE ACETATE 0.1MG TABLET PO SCH (08:32)
[2021-05-02] MEDS: POLYETHYLENE GLYCOL 3350 (17GM) 1 DOSE PACK PO SCH (08:32)
[2021-05-02] MEDS: DOCUSATE SODIUM 100MG CAPSULE PO SCH (08:32)
[2021-05-02] MEDS: FAMOTIDINE 20MG TABLET PO SCH (08:35)
[2021-05-02] MEDS: TAMSULOSIN HCL 0.4MG SR CAPSULE PO SCH (08:35)
[2021-05-02] MEDS: FERROUS SULFATE 325MG TABLET PO SCH (08:35)
[2021-05-02 10:00] VITALS: BP 120/96
== END 2021-05-02 10:15 | DRG 38 ==
LOC: ER 19:53 → MICUSO 23:23 → EDBEDREQ 23:26 → 8WST 04-08 09:03 → CVICU 04-11 16:16 → 6EST 04-14 13:39 → 6WST 04-22 10:27 → 6EST 04-23 15:28 → 3WST 04-24 19:49
PROVIDERS: ADMIT Internal Medicine; ATTEND Internal Medicine
PROC: 03CJ0ZZ Extirpation of Matter from Left Common Carotid Artery, Open Approach (ICD-10-PCS; principal; 2021-04-11)
PROC: 03CN0ZZ Extirpation of Matter from Left External Carotid Artery, Open Approach (ICD-10-PCS; 2021-04-11)
PROC: 03CL0ZZ Extirpation of Matter from Left Internal Carotid Artery, Open Approach (ICD-10-PCS; 2021-04-11)
PROC: 4A10X4Z Monitoring of Central Nervous Electrical Activity, External Approach (ICD-10-PCS; 2021-04-12)
PROC: 30233N1 Transfusion of Nonautologous Red Blood Cells into Peripheral Vein, Percutaneous Approach (ICD-10-PCS; 2021-04-23)
PROC: 06H03DZ Insertion of Intraluminal Device into Inferior Vena Cava, Percutaneous Approach (ICD-10-PCS; 2021-04-24)
PROC: B519ZZA Fluoroscopy of Inferior Vena Cava, Guidance (ICD-10-PCS; 2021-04-24)
PROC: 06HY33Z Insertion of Infusion Device into Lower Vein, Percutaneous Approach (ICD-10-PCS; 2021-04-25)
PROC: B54MZZA Ultrasonography of Right Upper Extremity Veins, Guidance (ICD-10-PCS; 2021-04-25)
PROC: 4A10X4Z Monitoring of Central Nervous Electrical Activity, External Approach (ICD-10-PCS; 2021-04-26)
PROC: 05HY33Z Insertion of Infusion Device into Upper Vein, Percutaneous Approach (ICD-10-PCS; 2021-04-26)
DX: I65.23 Occlusion and stenosis of bilateral carotid arteries (principal); M62.82 Rhabdomyolysis; I69.354 Hemiplegia and hemiparesis following cerebral infarction affecting left non-dominant side; I82.402 Acute embolism and thrombosis of unspecified deep veins of left lower extremity; N39.0 Urinary tract infection, site not specified; G90.8 Other disorders of autonomic nervous system; D50.9 Iron deficiency anemia, unspecified; D53.9 Nutritional anemia, unspecified; E78.00 Pure hypercholesterolemia, unspecified; E78.5 Hyperlipidemia, unspecified; I12.9 Hypertensive chronic kidney disease with stage 1 through stage 4 chronic kidney disease, or unspecified chronic kidney disease; I25.10 Atherosclerotic heart disease of native coronary artery without angina pectoris; I73.9 Peripheral vascular disease, unspecified; M10.9 Gout, unspecified; M48.061 Spinal stenosis, lumbar region without neurogenic claudication; N18.9 Chronic kidney disease, unspecified; Z20.822 Contact with and (suspected) exposure to COVID-19; N40.0 Benign prostatic hyperplasia without lower urinary tract symptoms; I71.9 Aortic aneurysm of unspecified site, without rupture; I72.3 Aneurysm of iliac artery; I16.0 Hypertensive urgency; I95.1 Orthostatic hypotension; R53.81 Other malaise; Z86.718 Personal history of other venous thrombosis and embolism; Z79.82 Long term (current) use of aspirin; Z79.899 Other long term (current) drug therapy; Z79.1 Long term (current) use of non-steroidal anti-inflammatories (NSAID); R53.1 Weakness; I65.02 Occlusion and stenosis of left vertebral artery
CPT/HCPCS: 36415; 37191; 70490; 70496; 70498; 70551; 71045; 76881; 76937; 80048; 80053; 80061; 80076; 81003; 82607; 82728; 82746; 82962; 83540; 83550; 83605; 83735; 83880; 84100; 84439; 84443; 84484; 85014; 85018; 85025; 85027; 86850; 86900; 86920; 87077; 87186; 87426; 88304; 88311; 92610; 93005; 93306; 93970; 95816; 97116; 97162; 97164; 97166; 97530; 99285; C1725; C1769; C1880; C1887; J0690; J0696; J1644; J1650; J2270; J2370; J2405; J2704; J2710; J2720; J2920; J3010; J3490; J7030; J7040; J7042; J7050; J7060; P9016; Q9967